=== PATIENT | female | born 1940 | race Caucasian/White ===

== ENCOUNTER 2017-11-07 09:31 | Inpatient (IN) | payer MEDICARE, MEDICAID ==
[~2017-11-07] VITALS: Ht 167.6 cm; Wt 113.5 kg
[~2017-11-07 09:31] MED LIST: AMIT25TA9 PO; ASPI-1158 PO; ATOR10TA PO; CLOP75TA16 PO; DOCU-138 PO; FURO-151 PO; LORA1TAB PO
[2017-11-07] MEDS ORDERED: HEPARIN SODIUM 1,000 UNIT/1ML VIAL IV ONE (11:37)
[2017-11-07] MEDS ORDERED: ASPIRIN/SOD BICARB/CITRIC ACID 324MG TAB EFF ONE (13:06)
[2017-11-07] MEDS ORDERED: MIDAZOLAM HCL 2 MG/2 ML VIAL ONE (13:09)
[2017-11-07] MEDS ORDERED: IODIXANOL 320MG/ML 100 ML BOTTLE IV ONE (13:10)
[2017-11-07] MEDS ORDERED: FENTANYL CITRATE/PF 50MCG/ML 2ML VIAL ONE (13:10)
[2017-11-07] MEDS ORDERED: LIDOCAINE HCL 1% 10 MG/ML 10ML VIAL ONE ×2 (13:10→13:23)
[2017-11-07] MEDS ORDERED: IOHEXOL-300 100 ML BOTTLE ONE (13:57)
[2017-11-07] MEDS ORDERED: ONDANSETRON HCL 4MG/2ML INJ IV PRN (14:45)
[2017-11-07] MEDS ORDERED: ACETAMINOPHEN 325MG TABLET PO PRN (14:45)
[2017-11-07] MEDS ORDERED: ATROPINE SULFATE 1MG/10ML SYR IV PRN (14:45)
[2017-11-07] MEDS ORDERED: CLOPIDOGREL 75MG TABLET PO ONE (14:45)
[2017-11-07] MEDS ORDERED: NITROGLYCERIN 50MCG/ML 10ML VIAL (CATH LAB) IV ONE (14:46)
[2017-11-07] MEDS ORDERED: NICARDIPINE 100MCG/ML 10ML VIAL (CATH LAB) IV ONE (14:46)
[2017-11-07 14:57] VITALS: BP 139/72
[2017-11-07] MEDS ORDERED: DEXTROSE 50% WATER 50ML SYRINGE IV PRN (15:00)
[2017-11-07] MEDS: BLOOD SUGAR DIAGNOSTIC STRIP TEST SCH ×2 (16:09→20:51)
[2017-11-07 16:12] VITALS: BP 150/69
[2017-11-07] MEDS: LOSARTAN POTASSIUM 25 MG TABLET PO SCH (16:15)
[2017-11-07] MEDS: INSULIN LISPRO 100 UNITS/ML SUBCUT SCH ×2 (17:20→20:51)
[2017-11-07 18:32] VITALS: BP 132/56
[2017-11-07 20:00] VITALS: BP 135/55
[2017-11-07] MEDS: METOPROLOL TARTRATE 50MG TABLET PO SCH (20:36)
[2017-11-07] MEDS ORDERED: ATORVASTATIN CALCIUM 40MG TABLET PO SCH (21:00)
[2017-11-07 22:00] VITALS: BP 112/42
[2017-11-08] VITALS (8 sets, daily range): BP systolic 124–166; BP diastolic 42–92
[2017-11-08] MEDS: BLOOD SUGAR DIAGNOSTIC STRIP TEST SCH (06:12)
[2017-11-08 06:58] LABS: BASOPHILS % 0.2 % (0.0-2.0); EOSINOPHILS % 2.1 % (0.0-5.0); HEMATOCRIT. 37.6 % (36.0-48.0); HEMOGLOBIN. 12.6 g/dL (12.0-16.0); LYMPHOCYTES % 55.5 % (20.0-50.0); MEAN CORPUSCULAR HEMOGLOBIN 29.2 pg (28.0-32.0); MEAN CORPUSCULAR VOLUME 87.4 fL (81.0-99.0); MEAN PLATELET VOLUME 8.4 fl (7.4-10.4); MONOCYTES % 5.9 % (2.0-8.0); NEUTROPHILS % 36.3 % (40.0-76.0); PLATELET 208 x1000/uL (130-400); RED BLOOD CELL COUNT 4.31 mill/uL (4.2-5.4); RED CELL DISTRIBUTION WIDTH 14.4 % (11.6-14.6)
[2017-11-08] MEDS: INSULIN LISPRO 100 UNITS/ML SUBCUT SCH (07:20)
[2017-11-08 07:34] LABS: CHLORIDE 102 mEq/L (98-107)
[2017-11-08] MEDS: METOPROLOL TARTRATE 50MG TABLET PO SCH (08:56)
[2017-11-08] MEDS: LOSARTAN POTASSIUM 25 MG TABLET PO SCH (08:56)
[2017-11-08] MEDS ORDERED: CLOPIDOGREL 75MG TABLET PO SCH (09:00)
== END 2017-11-08 13:28 | disposition home or self-care (01) | DRG 287 ==
LOC: CCL 09:31 → 3WST 09:32
PROVIDERS: ADMIT Specialist; ATTEND Specialist
PROC: 4A023N7 Measurement of Cardiac Sampling and Pressure, Left Heart, Percutaneous Approach (ICD-10-PCS; principal; 2017-11-07)
PROC: B2111ZZ Fluoroscopy of Multiple Coronary Arteries using Low Osmolar Contrast (ICD-10-PCS; 2017-11-07)
DX: I25.110 Atherosclerotic heart disease of native coronary artery with unstable angina pectoris (principal); I10 Essential (primary) hypertension; E78.00 Pure hypercholesterolemia, unspecified; E11.9 Type 2 diabetes mellitus without complications; M19.90 Unspecified osteoarthritis, unspecified site; G47.33 Obstructive sleep apnea (adult) (pediatric); I25.2 Old myocardial infarction; Z95.5 Presence of coronary angioplasty implant and graft; Z88.6 Allergy status to analgesic agent
CPT/HCPCS: 36415; 80048; 82962; 85025; 85347; 93005; 93458; C1769; C1887; C1893; J1644; J1815; J2250; J3010; J3490; Q9967

== ENCOUNTER 2018-06-15 17:48 | Inpatient (IN) | payer OTHER, MEDICAID ==
[~2018-06-15] VITALS: Ht 165.1 cm; Wt 81.6 kg
[2018-06-15] MEDS ORDERED: ONDANSETRON HCL 4MG/2ML INJ IV STA (18:28)
[2018-06-15] MEDS ORDERED: MORPHINE SULFATE 4 MG/ML CPJ (NOT FOR IM USE) IV STA (18:28)
[2018-06-15 18:58] LABS: BASOPHILS % 0.3 % (0.0-2.0); EOSINOPHILS % 1.2 % (0.0-5.0); HEMATOCRIT. 37.8 % (36.0-48.0); HEMOGLOBIN. 12.4 g/dL (12.0-16.0); LYMPHOCYTES % 47.6 % (20.0-50.0); MEAN CORPUSCULAR HEMOGLOBIN 28.8 pg (28.0-32.0); MEAN CORPUSCULAR VOLUME 87.9 fL (81.0-99.0); MEAN PLATELET VOLUME 8.3 fl (7.4-10.4); NEUTROPHILS % 45.9 % (40.0-76.0); PLATELET 184 x1000/uL (130-400); RED CELL DISTRIBUTION WIDTH 14.2 % (11.6-14.6)
[2018-06-15 19:14] LABS: D-DIMER 2.68 mg/L FEU (<0.50); PARTIAL THROMBOPLASTIN TIME 27.4 sec (23.4-31.0); PROTHROMBIN TIME 10.2 sec (9.6-11.0)
[2018-06-15 19:23] LABS: CHLORIDE 103 mEq/L (98-107)
[2018-06-15 19:27] LABS: ETHANOL BLOOD < 10 mg/dL
[2018-06-15] MEDS ORDERED: ENOXAPARIN 40MG/0.4ML SYR SUBCUT SCH (21:45)
[2018-06-15] MEDS ORDERED: DIPHENHYDRAMINE 50MG/ML VIAL IV PRN (21:45)
[2018-06-15] MEDS ORDERED: ONDANSETRON HCL 4MG/2ML INJ IV PRN (21:45)
[2018-06-15] MEDS ORDERED: GUAIFENESIN 200MG/10ML SUGAR FREE UDC PO PRN (21:45)
[2018-06-15] MEDS ORDERED: HYDROMORPHONE HCL/PF 2MG/ML CPJ IV PRN (21:45)
[2018-06-15] MEDS ORDERED: CLONIDINE 0.1MG TABLET PO PRN (21:45)
[2018-06-15] MEDS ORDERED: MAGNESIUM/ALUMINUM HYDROXIDE/SIMETHICONE 30ML UDC PO PRN (21:45)
[2018-06-15] MEDS ORDERED: DOCUSATE SODIUM 100MG CAPSULE PO PRN (21:45)
[2018-06-15] MEDS ORDERED: IPRATROPIUM/ALBUTEROL 0.5-3(2.5)MG/3ML NEB INH PRN (21:45)
[2018-06-15] MEDS ORDERED: ACETAMINOPHEN 325MG TABLET PO PRN (21:45)
[2018-06-15] MEDS ORDERED: LORAZEPAM 2MG/ML CPJ IV PRN (21:45)
[2018-06-15 22:38] LABS: CHLORIDE 107 mEq/L (98-107)
[2018-06-16 03:25] LABS: *AMPHETAMINES SCREEN URINE NEGATIVE (NEGATIVE)
[2018-06-16 03:27] LABS: *BARBITURATES SCREEN URINE NEGATIVE (NEGATIVE); *BENZODIAZEPINES SCREEN URINE NEGATIVE (NEGATIVE); *COCAINE SCREEN URINE NEGATIVE (NEGATIVE); CANNABINOID URINE SCREEN NEGATIVE (NEGATIVE); METHADONE URINE SCREEN NEGATIVE (NEGATIVE); OPIATES URINE SCREEN PRESUMTIVE POSITIVE (NEGATIVE); PHENCYCLIDINE URINE SCREEN NEGATIVE (NEGATIVE)
[2018-06-16] MEDS ORDERED: IOHEXOL-350 100 ML BOTTLE ONE (04:17)
[2018-06-16 06:01] LABS: BASOPHILS % 0.2 % (0.0-2.0); EOSINOPHILS % 0.7 % (0.0-5.0); HEMATOCRIT. 40.3 % (36.0-48.0); HEMOGLOBIN. 13.1 g/dL (12.0-16.0); LYMPHOCYTES % 48.9 % (20.0-50.0); MEAN CORPUSCULAR HEMOGLOBIN 28.8 pg (28.0-32.0); MEAN CORPUSCULAR VOLUME 88.4 fL (81.0-99.0); MEAN PLATELET VOLUME 8.6 fl (7.4-10.4); MONOCYTES % 5.3 % (2.0-8.0); NEUTROPHILS % 44.9 % (40.0-76.0); PLATELET 193 x1000/uL (130-400); RED BLOOD CELL COUNT 4.56 mill/uL (4.2-5.4); RED CELL DISTRIBUTION WIDTH 13.9 % (11.6-14.6)
[2018-06-16 06:12] LABS: CHLORIDE 104 mEq/L (98-107)
[2018-06-16 06:20] LABS: HDL CHOLESTEROL 77 mg/dL (40-59); LDL CHOLESTEROL 96 mg/dL (5-100)
[2018-06-16 08:00] VITALS: BP 135/52
[2018-06-16] MEDS ORDERED: NA PHOS,M-B/NA PHOS,DI-BA ENEMA 118ML PR PRN (09:00)
[2018-06-16 10:00] VITALS: BP 135/52
[2018-06-16 12:00] VITALS: BP 140/60
[2018-06-16] MEDS: CLOPIDOGREL 75MG TABLET PO SCH (12:10)
[2018-06-16] MEDS: ASPIRIN 81MG EC TABLET PO SCH (12:10)
[2018-06-16] MEDS: ISOSORBIDE MONONITRATE 60MG TABLET SR 24HR PO SCH (12:10)
[2018-06-16] MEDS: ENOXAPARIN 30MG/0.3ML SYR SUBCUT SCH ×2 (12:11→21:53)
[2018-06-16] MEDS: BLOOD SUGAR DIAGNOSTIC STRIP TEST SCH ×3 (12:40→21:57)
[2018-06-16] MEDS ORDERED: DEXTROSE 50% WATER 50ML SYRINGE IV PRN (12:45)
[2018-06-16] MEDS: INSULIN LISPRO 100 UNITS/ML SUBCUT SCH ×3 (13:10→21:00)
[2018-06-16] MEDS: HYDROCODONE/ACETAMINOPHEN 5/325MG TABLET PO PRN ×2 (15:55→21:52)
[2018-06-16 16:00] VITALS: BP 129/59
[2018-06-16] MEDS: FUROSEMIDE 40MG/4ML VIAL IVP SCH (19:30)
[2018-06-16 20:00] VITALS: BP 116/56
[2018-06-16] MEDS ORDERED: ATORVASTATIN CALCIUM 40MG TABLET PO SCH (21:00)
[2018-06-16] MEDS: AMLODIPINE 5MG TABLET PO SCH (21:50)
[2018-06-17 00:17] VITALS: BP 119/62
[2018-06-17 04:00] VITALS: BP 144/63
[2018-06-17] MEDS: HYDROCODONE/ACETAMINOPHEN 5/325MG TABLET PO PRN ×2 (04:11→13:03)
[2018-06-17] MEDS: BLOOD SUGAR DIAGNOSTIC STRIP TEST SCH ×2 (06:42→12:40)
[2018-06-17 08:00] VITALS: BP 140/69
[2018-06-17] MEDS: INSULIN LISPRO 100 UNITS/ML SUBCUT SCH ×2 (08:10→13:10)
[2018-06-17] MEDS: AMLODIPINE 5MG TABLET PO SCH (08:52)
[2018-06-17] MEDS: CLOPIDOGREL 75MG TABLET PO SCH (08:52)
[2018-06-17] MEDS: ISOSORBIDE MONONITRATE 60MG TABLET SR 24HR PO SCH (08:52)
[2018-06-17] MEDS: ASPIRIN 81MG EC TABLET PO SCH (08:52)
[2018-06-17] MEDS: FUROSEMIDE 40MG/4ML VIAL IVP SCH (09:00)
[2018-06-17] MEDS: ENOXAPARIN 30MG/0.3ML SYR SUBCUT SCH (10:27)
[2018-06-17 12:00] VITALS: BP 120/59
[2018-06-17 16:00] VITALS: BP 117/56
== END 2018-06-17 18:16 | disposition home or self-care (01) | DRG 311 ==
LOC: ER 17:48 → 7WST 20:11 → EDBEDREQ 20:19 → EDBEDREQTM 20:19 → ENRESERV 06-16 03:06
PROVIDERS: ADMIT Internal Medicine; ATTEND Internal Medicine
DX: I24.9 Acute ischemic heart disease, unspecified (principal); E11.9 Type 2 diabetes mellitus without complications; E66.9 Obesity, unspecified; E78.5 Hyperlipidemia, unspecified; M25.511 Pain in right shoulder; I50.9 Heart failure, unspecified; I11.0 Hypertensive heart disease with heart failure; I25.10 Atherosclerotic heart disease of native coronary artery without angina pectoris; I25.2 Old myocardial infarction; Z79.02 Long term (current) use of antithrombotics/antiplatelets; Z79.82 Long term (current) use of aspirin; Z79.899 Other long term (current) drug therapy; Z95.5 Presence of coronary angioplasty implant and graft; Z68.30 Body mass index [BMI] 30.0-30.9, adult
CPT/HCPCS: 36415; 71045; 71275; 73030; 80048; 80061; 80305; 80320; 82962; 83880; 84484; 85379; 93005; 93306; 96374; 96375; 99285; J1650; J1940; J2270; J2405; Q9967; G0480

== ENCOUNTER 2018-09-21 09:57 | Inpatient (IN) | payer MEDICARE, MEDICAID ==
[~2018-09-21] VITALS: Ht 165.1 cm; Wt 107.0 kg
[~2018-09-21 09:57] MED LIST changes: -CLOP75TA16 PO; +CLOP75TA4 PO
[2018-09-21] MEDS ORDERED: SODIUM CHLORIDE 0.9% 1,000 ML IV ONE (10:24)
[2018-09-21] MEDS ORDERED: FENTANYL CITRATE/PF 50MCG/ML 2ML VIAL IV ONE (10:30)
[2018-09-21] MEDS ORDERED: ONDANSETRON HCL 4MG/2ML INJ IV ONE (10:30)
[2018-09-21 11:01] LABS: HEMATOCRIT. 40.1 % (36.0-48.0); MEAN CORPUSCULAR HEMOGLOBIN 28.8 pg (28.0-32.0); MEAN CORPUSCULAR VOLUME 88.7 fL (81.0-99.0); MEAN PLATELET VOLUME 8.4 fl (7.4-10.4); PLATELET 238 x1000/uL (130-400); RED BLOOD CELL COUNT 4.52 mill/uL (4.2-5.4); RED CELL DISTRIBUTION WIDTH 15.1 % (11.6-14.6)
[2018-09-21 11:08] LABS: CHLORIDE 103 mEq/L (98-107)
[2018-09-21 11:09] LABS: PROTHROMBIN TIME 10.1 sec (9.6-11.0)
[2018-09-21 11:32] LABS: PLATELET ESTIMATE NORMAL
[2018-09-21] MEDS ORDERED: IOHEXOL-300 100 ML BOTTLE ONE (12:44)
[2018-09-21 13:28] LABS: CLARITY URINE CLEAR (CLEAR); COLOR URINE YELLOW (YELLOW); KETONES URINE NEGATIVE (NEGATIVE); LEUKOCYTE ESTERASE URINE NEGATIVE (NEGATIVE); NITRITE URINE NEGATIVE (NEGATIVE); OCCULT BLOOD URINE NEGATIVE (NEGATIVE); PROTEIN URINE NEGATIVE (NEGATIVE); SPECIFIC GRAVITY URINE 1.031 (1.005-1.030)
[2018-09-21] MEDS ORDERED: LORAZEPAM 2MG/ML CPJ IV PRN (13:30)
[2018-09-21] MEDS ORDERED: GUAIFENESIN 200MG/10ML SUGAR FREE UDC PO PRN (13:30)
[2018-09-21] MEDS ORDERED: ONDANSETRON HCL 4MG/2ML INJ IV PRN (13:30)
[2018-09-21] MEDS ORDERED: NA PHOS,M-B/NA PHOS,DI-BA ENEMA 118ML PR PRN (13:30)
[2018-09-21] MEDS ORDERED: MAGNESIUM/ALUMINUM HYDROXIDE/SIMETHICONE 30ML UDC PO PRN (13:30)
[2018-09-21] MEDS ORDERED: IPRATROPIUM/ALBUTEROL 0.5-3(2.5)MG/3ML NEB INH PRN (13:30)
[2018-09-21] MEDS ORDERED: CLONIDINE 0.1MG TABLET PO PRN (13:30)
[2018-09-21] MEDS ORDERED: DIPHENHYDRAMINE 50MG/ML VIAL IV PRN (13:30)
[2018-09-21] MEDS ORDERED: HYDRALAZINE 20MG/ML VIAL IV PRN (13:30)
[2018-09-21] MEDS ORDERED: DEXTROSE 50% WATER 50ML SYRINGE IV PRN (14:15)
[2018-09-21 16:00] VITALS: BP 163/69
[2018-09-21] MEDS: BLOOD SUGAR DIAGNOSTIC STRIP TEST SCH ×2 (17:10→21:26)
[2018-09-21 17:50] LABS: CREATINE KINASE 69 IU/L (26-192)
[2018-09-21 17:52] LABS: CREATINE KINASE MB FRACTION < 1.0 ng/mL (0.5-3.6)
[2018-09-21] MEDS: INSULIN LISPRO 100 UNITS/ML SUBCUT SCH ×2 (18:52→21:26)
[2018-09-21 19:50] VITALS: BP 153/65
[2018-09-21 20:00] VITALS: BP 156/75
[2018-09-21] MEDS: ENOXAPARIN 30MG/0.3ML SYR SUBCUT SCH (21:25)
[2018-09-21] MEDS: SODIUM CHLORIDE 0.9% INJ 3ML FLUSH IVF SCH (21:27)
[2018-09-22] VITALS: BP 120/66
[2018-09-22] MEDS: HYDROCODONE/ACETAMINOPHEN 10/325MG TABLET PO PRN ×3 (00:36→14:49)
[2018-09-22 00:59] LABS: CREATINE KINASE 65 IU/L (26-192)
[2018-09-22 01:00] LABS: CREATINE KINASE MB FRACTION < 1.0 ng/mL (0.5-3.6)
[2018-09-22 04:00] VITALS: BP 143/59
[2018-09-22] MEDS: SODIUM CHLORIDE 0.9% INJ 3ML FLUSH IVF SCH ×3 (06:10→20:24)
[2018-09-22] MEDS: BLOOD SUGAR DIAGNOSTIC STRIP TEST SCH ×4 (06:24→20:25)
[2018-09-22] MEDS: INSULIN LISPRO 100 UNITS/ML SUBCUT SCH ×4 (06:24→20:25)
[2018-09-22 08:00] VITALS: BP 128/60
[2018-09-22 08:49] LABS: HEMATOCRIT. 37.3 % (36.0-48.0); HEMOGLOBIN. 12.3 g/dL (12.0-16.0); MEAN CORPUSCULAR HEMOGLOBIN 29.1 pg (28.0-32.0); MEAN CORPUSCULAR VOLUME 88.2 fL (81.0-99.0); MEAN PLATELET VOLUME 8.6 fl (7.4-10.4); PLATELET 221 x1000/uL (130-400); RED BLOOD CELL COUNT 4.23 mill/uL (4.2-5.4); RED CELL DISTRIBUTION WIDTH 15.1 % (11.6-14.6)
[2018-09-22 09:14] LABS: CHLORIDE 103 mEq/L (98-107)
[2018-09-22 09:28] LABS: T4 FREE 1.23 ng/dL (0.76-1.46)
[2018-09-22] MEDS: ENOXAPARIN 30MG/0.3ML SYR SUBCUT SCH ×2 (09:37→20:24)
[2018-09-22 12:00] VITALS: BP 149/66
[2018-09-22 13:16] LABS: PLATELET ESTIMATE NORMAL
[2018-09-22 16:00] VITALS: BP 147/56
[2018-09-22 20:00] VITALS: BP 141/55
[2018-09-22] MEDS: ACETAMINOPHEN 325MG TABLET PO PRN (20:24)
[2018-09-23] VITALS: BP 158/65
[2018-09-23] MEDS: HYDROCODONE/ACETAMINOPHEN 10/325MG TABLET PO PRN ×2 (02:46→15:28)
[2018-09-23 04:00] VITALS: BP 133/54
[2018-09-23] MEDS: DOCUSATE SODIUM 100MG CAPSULE PO PRN (06:09)
[2018-09-23] MEDS: SODIUM CHLORIDE 0.9% INJ 3ML FLUSH IVF SCH ×3 (06:10→22:35)
[2018-09-23] MEDS: BLOOD SUGAR DIAGNOSTIC STRIP TEST SCH ×4 (07:10→21:30)
[2018-09-23] MEDS: INSULIN LISPRO 100 UNITS/ML SUBCUT SCH ×4 (07:34→21:00)
[2018-09-23 08:00] VITALS: BP 169/70
[2018-09-23] MEDS: ENOXAPARIN 30MG/0.3ML SYR SUBCUT SCH ×2 (09:45→22:35)
[2018-09-23 12:00] VITALS: BP 126/53
[2018-09-23 16:00] VITALS: BP 144/50
[2018-09-23] MEDS: HYDROMORPHONE HCL/PF 2MG/ML CPJ IV PRN (19:06)
[2018-09-23 20:00] VITALS: BP 151/59
[2018-09-24] VITALS: BP 149/80
[2018-09-24 04:00] VITALS: BP 150/60
[2018-09-24] MEDS: BLOOD SUGAR DIAGNOSTIC STRIP TEST SCH ×4 (05:18→21:15)
[2018-09-24] MEDS: SODIUM CHLORIDE 0.9% INJ 3ML FLUSH IVF SCH ×3 (05:18→21:33)
[2018-09-24] MEDS: HYDROMORPHONE HCL/PF 2MG/ML CPJ IV PRN ×2 (05:18→10:13)
[2018-09-24] MEDS: INSULIN LISPRO 100 UNITS/ML SUBCUT SCH ×4 (05:23→21:00)
[2018-09-24 08:00] VITALS: BP 138/62
[2018-09-24] MEDS: ENOXAPARIN 30MG/0.3ML SYR SUBCUT SCH ×2 (09:30→21:34)
[2018-09-24 12:00] VITALS: BP 159/68
[2018-09-24 16:00] VITALS: BP 142/72
[2018-09-24] MEDS: DOCUSATE SODIUM 100MG CAPSULE PO PRN (17:35)
[2018-09-24 20:00] VITALS: BP 161/67
[2018-09-25] VITALS: BP 169/67
[2018-09-25] MEDS: ACETAMINOPHEN 325MG TABLET PO PRN (00:54)
[2018-09-25 01:54] VITALS: BP 129/50
[2018-09-25 04:00] VITALS: BP 157/83
[2018-09-25] MEDS: BLOOD SUGAR DIAGNOSTIC STRIP TEST SCH ×2 (06:16→12:10)
[2018-09-25] MEDS: SODIUM CHLORIDE 0.9% INJ 3ML FLUSH IVF SCH ×2 (06:17→14:05)
[2018-09-25] MEDS: INSULIN LISPRO 100 UNITS/ML SUBCUT SCH ×2 (06:51→12:24)
[2018-09-25] MEDS: ENOXAPARIN 30MG/0.3ML SYR SUBCUT SCH (09:32)
[2018-09-25] MEDS: HYDROCODONE/ACETAMINOPHEN 10/325MG TABLET PO PRN (11:05)
[2018-09-25 12:00] VITALS: BP 152/74
[2018-09-25 14:00] VITALS: BP 152/74
== END 2018-09-25 16:02 | disposition home health service (06) | DRG 964 ==
LOC: ER 09:57 → 8WST 13:03 → ENRESERV 13:59
PROVIDERS: ADMIT Internal Medicine; ATTEND Internal Medicine
PROC: 2W3GX1Z Immobilization of Right Thumb using Splint (ICD-10-PCS; principal; 2018-09-21)
PROC: 2W3 Placement, Anatomical Regions, Immobilization (ICD-10-PCS; 2018-09-24)
DX: S22.41XA Multiple fractures of ribs, right side, initial encounter for closed fracture (principal); S27.1XXA Traumatic hemothorax, initial encounter; S32.10XA Unspecified fracture of sacrum, initial encounter for closed fracture; S32.029A Unspecified fracture of second lumbar vertebra, initial encounter for closed fracture; R65.10 Systemic inflammatory response syndrome (SIRS) of non-infectious origin without acute organ dysfunction; J90 Pleural effusion, not elsewhere classified; I11.9 Hypertensive heart disease without heart failure; E11.9 Type 2 diabetes mellitus without complications; I25.10 Atherosclerotic heart disease of native coronary artery without angina pectoris; Z95.5 Presence of coronary angioplasty implant and graft; D35.02 Benign neoplasm of left adrenal gland; M47.816 Spondylosis without myelopathy or radiculopathy, lumbar region; M43.10 Spondylolisthesis, site unspecified; M48.061 Spinal stenosis, lumbar region without neurogenic claudication; W10.9XXA Fall (on) (from) unspecified stairs and steps, initial encounter; E66.01 Morbid (severe) obesity due to excess calories; K57.30 Diverticulosis of large intestine without perforation or abscess without bleeding; Z88.5 Allergy status to narcotic agent; W10.8XXA Fall (on) (from) other stairs and steps, initial encounter; Y93.89 Activity, other specified; Y92.89 Other specified places as the place of occurrence of the external cause; Y99.8 Other external cause status; S62.009A Unspecified fracture of navicular [scaphoid] bone of unspecified wrist, initial encounter for closed fracture; Z79.02 Long term (current) use of antithrombotics/antiplatelets; Z79.899 Other long term (current) drug therapy
CPT/HCPCS: 36415; 71045; 71260; 72148; 73030; 73110; 74177; 82550; 82553; 82962; 84439; 84443; 84484; 86850; 86900; 93005; 96374; 96375; 97162; 97530; 97760; 99291; J1170; J1650; J1815; J2405; J3010; J7030; Q9967

== ENCOUNTER 2019-04-10 02:23 | Inpatient (IN) | payer MEDICARE, MEDICAID ==
[~2019-04-10] VITALS: Ht 167.6 cm; Wt 98.9 kg
[2019-04-10 05:35] LABS: BASOPHILS % 0.2 % (0.0-2.0); EOSINOPHILS % 2.8 % (0.0-5.0); HEMATOCRIT. 32.6 % (36.0-48.0); HEMOGLOBIN. 11.1 g/dL (12.0-16.0); LYMPHOCYTES % 36.4 % (20.0-50.0); MEAN CORPUSCULAR HEMOGLOBIN 29.8 pg (28.0-32.0); MEAN CORPUSCULAR VOLUME 87.1 fL (81.0-99.0); MEAN PLATELET VOLUME 7.5 fl (7.4-10.4); MONOCYTES % 5.5 % (2.0-8.0); NEUTROPHILS % 55.1 % (40.0-76.0); PLATELET 264 x1000/uL (130-400); RED BLOOD CELL COUNT 3.75 mill/uL (4.2-5.4); RED CELL DISTRIBUTION WIDTH 14.8 % (11.6-14.6)
[2019-04-10 05:45] LABS: CHLORIDE 104 mEq/L (98-107)
[2019-04-10] MEDS ORDERED: HYDROCODONE/ACETAMINOPHEN 5/325MG TABLET PO ONE (06:15)
[2019-04-10 06:25] LABS: CLARITY URINE CLEAR (CLEAR); COLOR URINE YELLOW (YELLOW); KETONES URINE NEGATIVE (NEGATIVE); LEUKOCYTE ESTERASE URINE NEGATIVE (NEGATIVE); NITRITE URINE NEGATIVE (NEGATIVE); OCCULT BLOOD URINE NEGATIVE (NEGATIVE); PH URINE 5.5 (4.5-8.0); PROTEIN URINE NEGATIVE (NEGATIVE); SPECIFIC GRAVITY URINE 1.005 (1.005-1.030); UROBILINOGEN URINE 0.2 E.U./dL (0.2-1.0)
[2019-04-10] MEDS ORDERED: LORAZEPAM 2MG/ML CPJ IV ONE (07:45)
[2019-04-10] MEDS ORDERED: FUROSEMIDE 20MG/2ML VIAL IVP ONE (08:00)
[2019-04-10] MEDS ORDERED: VANCOMYCIN 1 G PREMIX 200 ML IV SCH (08:00)
[2019-04-10] MEDS ORDERED: CEFTRIAXONE 2 G PREMIX 50 ML IV ONE (08:45)
[2019-04-10] MEDS ORDERED: DIPHENHYDRAMINE 50MG/ML VIAL IV PRN (09:15)
[2019-04-10] MEDS ORDERED: GUAIFENESIN 200MG/10ML SUGAR FREE UDC PO PRN (09:15)
[2019-04-10] MEDS ORDERED: ONDANSETRON HCL 4MG/2ML INJ IV PRN (09:15)
[2019-04-10] MEDS ORDERED: LORAZEPAM 2MG/ML CPJ IV PRN (09:15)
[2019-04-10] MEDS ORDERED: PIPERACILLIN/TAZ 3.375G PREMIX 50 ML IV SCH (09:15)
[2019-04-10] MEDS ORDERED: MAGNESIUM/ALUMINUM HYDROXIDE/SIMETHICONE 30ML UDC PO PRN (09:15)
[2019-04-10] MEDS ORDERED: CLONIDINE 0.1MG TABLET PO PRN (09:15)
[2019-04-10] MEDS ORDERED: DOCUSATE SODIUM 100MG CAPSULE PO PRN (09:15)
[2019-04-10] MEDS ORDERED: CLOPIDOGREL 75MG TABLET PO SCH (09:15)
[2019-04-10 11:14] LABS: INR 1.5; PARTIAL THROMBOPLASTIN TIME 29.2 sec (23.4-31.0); PROTHROMBIN TIME 16.4 sec (9.6-11.0)
[2019-04-10] MEDS: HYDROCODONE/ACETAMINOPHEN 10/325MG TABLET PO PRN (17:10)
[2019-04-10 18:25] LABS: CREATINE KINASE 66 IU/L (26-192)
[2019-04-10 18:26] LABS: CREATINE KINASE MB FRACTION 1.2 ng/mL (0.5-3.6)
[2019-04-10] MEDS ORDERED: PIPERACILLIN/TAZOBACTAM 2.25 G in DEXTROSE 5% WATER 50 ML IV SCH (22:00)
[2019-04-10 22:30] VITALS: BP 175/79
[2019-04-10 23:17] VITALS: BP 175/79
[2019-04-11] VITALS: BP 156/76
[2019-04-11] MEDS: SODIUM CHLORIDE 0.45% 1,000 ML IV SCH ×2 (00:37→15:37)
[2019-04-11 01:20] LABS: CREATINE KINASE 65 IU/L (26-192)
[2019-04-11 01:21] LABS: CREATINE KINASE MB FRACTION 1.6 ng/mL (0.5-3.6)
[2019-04-11 04:00] VITALS: BP 167/81
[2019-04-11] MEDS: HYDRALAZINE 20MG/ML VIAL IV PRN (05:24)
[2019-04-11] MEDS: HYDROCODONE/ACETAMINOPHEN 10/325MG TABLET PO PRN ×3 (05:24→20:32)
[2019-04-11] MEDS: SODIUM CHLORIDE 0.9% INJ 3ML FLUSH IVF SCH ×3 (05:27→22:00)
[2019-04-11] MEDS ORDERED: VANCOMYCIN 1 G PREMIX 200 ML IV NR (06:00)
[2019-04-11 08:00] VITALS: BP 146/61
[2019-04-11] MEDS ORDERED: CEFTRIAXONE 2 G in DEXTROSE 5% WATER 50 ML IV SCH (09:00)
[2019-04-11] MEDS ORDERED: ASPIRIN 81MG EC TABLET PO SCH (09:00)
[2019-04-11] MEDS ORDERED: METOPROLOL TARTRATE 25MG TABLET PO SCH (09:00)
[2019-04-11] MEDS: AMLODIPINE 5MG TABLET PO SCH ×2 (10:10→20:28)
[2019-04-11] MEDS: METOPROLOL TARTRATE 25MG TABLET PO SCH ×2 (10:11→20:29)
[2019-04-11 12:00] VITALS: BP 157/65
[2019-04-11 12:11] LABS: CHLORIDE 110 mEq/L (98-107)
[2019-04-11 13:19] LABS: BASOPHILS % 0.5 % (0.0-2.0); EOSINOPHILS % 2.4 % (0.0-5.0); HEMATOCRIT. 30.4 % (36.0-48.0); LYMPHOCYTES % 41.9 % (20.0-50.0); MEAN CORPUSCULAR HEMOGLOBIN 28.7 pg (28.0-32.0); MEAN CORPUSCULAR VOLUME 87.1 fL (81.0-99.0); MEAN PLATELET VOLUME 7.8 fl (7.4-10.4); MONOCYTES % 5.9 % (2.0-8.0); NEUTROPHILS % 49.3 % (40.0-76.0); PLATELET 301 x1000/uL (130-400); RED BLOOD CELL COUNT 3.49 mill/uL (4.2-5.4)
[2019-04-11 13:27] LABS: INR 1.1; PROTHROMBIN TIME 11.8 sec (9.6-11.0)
[2019-04-11] MEDS ORDERED: MAGNESIUM 1 G PREMIX 100 ML IV NR (14:30)
[2019-04-11 16:00] VITALS: BP 164/71
[2019-04-11 16:39] LABS: CHLORIDE 110 mEq/L (98-107)
[2019-04-11] MEDS ORDERED: POTASSIUM CHLORIDE 20MEQ TABLET SR PO NR (16:45)
[2019-04-11] MEDS: IPRATROPIUM/ALBUTEROL 0.5-3(2.5)MG/3ML NEB HHN PRN ×2 (17:37→22:33)
[2019-04-11 20:00] VITALS: BP 164/61
[2019-04-12] VITALS (66 sets, daily range): BP systolic 123–220; BP diastolic 51–99
[2019-04-12] MEDS: DEXT 5%/LACTATED RINGERS 1,000 ML IV SCH ×2 (03:09→18:37)
[2019-04-12] MEDS: HYDRALAZINE 20MG/ML VIAL IV PRN ×2 (04:46→20:23)
[2019-04-12] MEDS ORDERED: SODIUM CHLORIDE 0.45% 250 ML IV ONE (07:00)
[2019-04-12] MEDS: METOPROLOL TARTRATE 25MG TABLET PO SCH ×2 (08:27→20:23)
[2019-04-12] MEDS: AMLODIPINE 5MG TABLET PO SCH ×2 (08:28→20:23)
[2019-04-12] MEDS ORDERED: LIDOCAINE HCL 1% 20ML VIAL (Pyxis) INJ ONE ×2 (08:44→12:46)
[2019-04-12 11:06] LABS: BASOPHILS % 0.2 % (0.0-2.0); EOSINOPHILS % 1.8 % (0.0-5.0); HEMATOCRIT. 30.8 % (36.0-48.0); HEMOGLOBIN. 10.2 g/dL (12.0-16.0); LYMPHOCYTES % 44.8 % (20.0-50.0); MEAN CORPUSCULAR HEMOGLOBIN 29.2 pg (28.0-32.0); MEAN CORPUSCULAR VOLUME 87.7 fL (81.0-99.0); MEAN PLATELET VOLUME 7.6 fl (7.4-10.4); MONOCYTES % 4.8 % (2.0-8.0); NEUTROPHILS % 48.4 % (40.0-76.0); PLATELET 349 x1000/uL (130-400); RED BLOOD CELL COUNT 3.51 mill/uL (4.2-5.4); RED CELL DISTRIBUTION WIDTH 14.8 % (11.6-14.6)
[2019-04-12 11:18] LABS: CHLORIDE 106 mEq/L (98-107)
[2019-04-12] MEDS ORDERED: MIDAZOLAM HCL 2 MG/2 ML VIAL ONE (12:46)
[2019-04-12] MEDS ORDERED: IODIXANOL 320MG/ML 100 ML BOTTLE IV ONE (12:46)
[2019-04-12] MEDS ORDERED: FENTANYL CITRATE/PF 50MCG/ML 2ML VIAL ONE (12:46)
[2019-04-12 13:07] LABS: ANTI-NUCLEAR ANTIBODIES DIRECT Negative (Negative)
[2019-04-12] MEDS ORDERED: HEPARIN SODIUM 1,000 UNIT/1ML VIAL IV ONE (13:10)
[2019-04-12] MEDS ORDERED: NICARDIPINE 100MCG/ML 10ML VIAL (CATH LAB) IV ONE (13:10)
[2019-04-12] MEDS ORDERED: NITROGLYCERIN 50MCG/ML 10ML VIAL (CATH LAB) IV ONE (13:10)
[2019-04-12] MEDS ORDERED: ACETAMINOPHEN 325MG TABLET PO PRN (13:30)
[2019-04-12] MEDS ORDERED: ATROPINE SULFATE 1MG/10ML SYR IV PRN (13:30)
[2019-04-12] MEDS ORDERED: ONDANSETRON HCL 4MG/2ML INJ IV PRN (13:30)
[2019-04-12] MEDS ORDERED: SODIUM CHLORIDE 0.45% 1,000 ML IV ONE (13:30)
[2019-04-12] MEDS ORDERED: SODIUM BICARBONATE 8.4% 1 MEQ/ML 50ML SYR IV NR (14:15)
[2019-04-12] MEDS: ACETAMINOPHEN 325MG TABLET PO PRN (14:43)
[2019-04-12] MEDS ORDERED: VANCOMYCIN 1250MG in DEXTROSE 5% WATER 250ML IV SCH (17:30)
[2019-04-13] VITALS (71 sets, daily range): BP systolic 99–165; BP diastolic 45–78
[2019-04-13] MEDS: HYDROCODONE/ACETAMINOPHEN 10/325MG TABLET PO PRN (03:27)
[2019-04-13] MEDS: CEFTRIAXONE 2 G in DEXTROSE 5% WATER 50 ML IV SCH (03:27)
[2019-04-13 05:52] LABS: BASOPHILS % 0.3 % (0.0-2.0); EOSINOPHILS % 2.9 % (0.0-5.0); HEMATOCRIT. 30.2 % (36.0-48.0); HEMOGLOBIN. 9.9 g/dL (12.0-16.0); LYMPHOCYTES % 50.3 % (20.0-50.0); MEAN CORPUSCULAR HEMOGLOBIN 28.9 pg (28.0-32.0); MEAN CORPUSCULAR VOLUME 87.8 fL (81.0-99.0); MEAN PLATELET VOLUME 7.8 fl (7.4-10.4); MONOCYTES % 4.8 % (2.0-8.0); NEUTROPHILS % 41.7 % (40.0-76.0); PLATELET 331 x1000/uL (130-400); RED BLOOD CELL COUNT 3.44 mill/uL (4.2-5.4); RED CELL DISTRIBUTION WIDTH 14.8 % (11.6-14.6)
[2019-04-13 06:10] LABS: CHLORIDE 106 mEq/L (98-107)
[2019-04-13] MEDS ORDERED: THROMBIN (BOVINE) 5000 UNITS/VIAL TOP ONE (06:59)
[2019-04-13] MEDS ORDERED: NORMAL SALINE 0.9% 10 ML SYR ONE (06:59)
[2019-04-13] MEDS ORDERED: LIDOCAINE HCL/EPINEPHRINE 1%-EPI 1:100,000 20 ML VIAL ONE (06:59)
[2019-04-13] MEDS ORDERED: BACITRACIN 50,000 UNITS/VIAL ONE (07:00)
[2019-04-13] MEDS ORDERED: FENTANYL CITRATE/PF 50MCG/ML 2ML VIAL ONE ×2 (07:52→09:13)
[2019-04-13] MEDS ORDERED: ROCURONIUM BROMIDE 10MG/ML VIAL 5ML IV ONE (07:52)
[2019-04-13] MEDS ORDERED: MIDAZOLAM HCL 2 MG/2 ML VIAL ONE (07:53)
[2019-04-13] MEDS ORDERED: GLYCOPYRROLATE 0.2 MG/ML 2ML VIAL ONE ×2 (07:53→11:11)
[2019-04-13] MEDS ORDERED: PROPOFOL 200MG/20ML VIAL IV ONE (07:53)
[2019-04-13] MEDS ORDERED: NEOSTIGMINE METHYLSULFATE 1MG/ML 10 ML VIAL ONE (07:53)
[2019-04-13] MEDS ORDERED: DEXAMETHASONE 4MG/ML 1ML VIAL ONE (08:52)
[2019-04-13] MEDS ORDERED: ONDANSETRON HCL 4MG/2ML INJ ONE (08:52)
[2019-04-13] MEDS: METOPROLOL TARTRATE 25MG TABLET PO SCH ×2 (09:00→21:00)
[2019-04-13] MEDS: AMLODIPINE 5MG TABLET PO SCH ×2 (09:00→21:00)
[2019-04-13] MEDS ORDERED: NALOXONE INJ IV PRN (12:15)
[2019-04-13] MEDS ORDERED: DIPHENHYDRAMINE INJ IV PRN (12:15)
[2019-04-13] MEDS: DEXT 5%/LACTATED RINGERS 1,000 ML IV SCH (12:46)
[2019-04-13] MEDS: NICARDIPINE 100 MG in SODIUM CHLORIDE 0.9% 60 ML IV PRN (12:47)
[2019-04-13] MEDS: HYDROMORPHONE PCA 10MG/50ML IV PRN (12:49)
[2019-04-13] MEDS ORDERED: VANCOMYCIN 2,000 MG in DEXT 5% WATER 500 ML IV SCH (14:00)
[2019-04-13] MEDS ORDERED: POTASSIUM CHLORIDE INJ 40 MEQ in DEXT 5% WATER 250 ML IV SCH (14:00)
[2019-04-13] MEDS ORDERED: CLONIDINE 0.1MG TABLET PO PRN (14:15)
[2019-04-14] VITALS (82 sets, daily range): BP systolic 99–156; BP diastolic 45–77
[2019-04-14] MEDS: CEFTRIAXONE 2 G in DEXTROSE 5% WATER 50 ML IV SCH (05:04)
[2019-04-14 05:48] LABS: CHLORIDE 106 mEq/L (98-107)
[2019-04-14 05:59] LABS: BASOPHILS % 0.4 % (0.0-2.0); EOSINOPHILS % 0.8 % (0.0-5.0); HEMATOCRIT. 23.8 % (36.0-48.0); HEMOGLOBIN. 7.7 g/dL (12.0-16.0); LYMPHOCYTES % 38.5 % (20.0-50.0); MEAN CORPUSCULAR HEMOGLOBIN 28.6 pg (28.0-32.0); MEAN CORPUSCULAR VOLUME 88.1 fL (81.0-99.0); MEAN PLATELET VOLUME 7.9 fl (7.4-10.4); MONOCYTES % 5.5 % (2.0-8.0); NEUTROPHILS % 54.8 % (40.0-76.0); PLATELET 302 x1000/uL (130-400); RED BLOOD CELL COUNT 2.71 mill/uL (4.2-5.4)
[2019-04-14] MEDS: DEXT 5%/LACTATED RINGERS 1,000 ML IV SCH (08:30)
[2019-04-14] MEDS: VANCOMYCIN 1500MG in DEXTROSE 5% WATER 250ML IV SCH (08:30)
[2019-04-14] MEDS: AMLODIPINE 5MG TABLET PO SCH ×2 (08:33→20:49)
[2019-04-14] MEDS: METOPROLOL TARTRATE 25MG TABLET PO SCH ×2 (08:33→20:49)
[2019-04-14 18:49] LABS: HEMATOCRIT 22.9 % (36.0-48.0); HEMOGLOBIN 7.5 g/dL (12.0-16.0)
[2019-04-15] VITALS (77 sets, daily range): BP systolic 107–171; BP diastolic 47–100
[2019-04-15] MEDS: HYDROMORPHONE PCA 10MG/50ML IV PRN (00:29)
[2019-04-15] MEDS: CEFTRIAXONE 2 G in DEXTROSE 5% WATER 50 ML IV SCH (04:52)
[2019-04-15] MEDS: DEXT 5%/LACTATED RINGERS 1,000 ML IV SCH ×2 (04:52→12:20)
[2019-04-15 05:28] LABS: BASOPHILS % 0.3 % (0.0-2.0); EOSINOPHILS % 1.7 % (0.0-5.0); HEMATOCRIT. 21.6 % (36.0-48.0); HEMOGLOBIN. 7.1 g/dL (12.0-16.0); LYMPHOCYTES % 28.3 % (20.0-50.0); MEAN CORPUSCULAR HEMOGLOBIN 29.2 pg (28.0-32.0); MEAN CORPUSCULAR VOLUME 89.2 fL (81.0-99.0); MEAN PLATELET VOLUME 7.9 fl (7.4-10.4); MONOCYTES % 7.8 % (2.0-8.0); NEUTROPHILS % 61.9 % (40.0-76.0); PLATELET 248 x1000/uL (130-400); RED BLOOD CELL COUNT 2.42 mill/uL (4.2-5.4); RED CELL DISTRIBUTION WIDTH 14.9 % (11.6-14.6)
[2019-04-15 05:50] LABS: CHLORIDE 107 mEq/L (98-107)
[2019-04-15] MEDS: METOPROLOL TARTRATE 25MG TABLET PO SCH (08:05)
[2019-04-15] MEDS: AMLODIPINE 5MG TABLET PO SCH ×2 (08:06→20:38)
[2019-04-15] MEDS: VANCOMYCIN 1500MG in DEXTROSE 5% WATER 250ML IV SCH (08:26)
[2019-04-15] MEDS ORDERED: MORPHINE SULFATE 2 MG/ML CPJ (NOT FOR IM USE) IV NR (09:45)
[2019-04-15] MEDS ORDERED: ASPIRIN 81MG TABLET PO NR (10:15)
[2019-04-15] MEDS: HYDRALAZINE 20MG/ML VIAL IV PRN ×2 (10:53→15:46)
[2019-04-15] MEDS ORDERED: VANCOMYCIN 250 MG in SODIUM CHLORIDE 0.9% 100 ML IV SCH (11:00)
[2019-04-15] MEDS ORDERED: VANCOMYCIN 500 MG PREMIX 100 ML IV SCH (11:00)
[2019-04-15 20:24] LABS: HEMATOCRIT 26.1 % (36.0-48.0); HEMOGLOBIN 8.8 g/dL (12.0-16.0)
[2019-04-15] MEDS: METOPROLOL TARTRATE 50MG TABLET PO SCH (20:37)
[2019-04-15] MEDS: NICARDIPINE 100 MG in SODIUM CHLORIDE 0.9% 60 ML IV PRN (20:38)
[2019-04-16] VITALS (91 sets, daily range): BP systolic 104–175; BP diastolic 50–97
[2019-04-16] MEDS: DEXT 5%/LACTATED RINGERS 1,000 ML IV SCH (03:56)
[2019-04-16] MEDS: VANCOMYCIN 1500MG in DEXTROSE 5% WATER 250ML IV SCH ×2 (03:56→18:25)
[2019-04-16 05:40] LABS: BASOPHILS % 0.3 % (0.0-2.0); EOSINOPHILS % 0.9 % (0.0-5.0); HEMATOCRIT. 26.2 % (36.0-48.0); HEMOGLOBIN. 8.6 g/dL (12.0-16.0); LYMPHOCYTES % 28.1 % (20.0-50.0); MEAN CORPUSCULAR HEMOGLOBIN 28.7 pg (28.0-32.0); MEAN CORPUSCULAR VOLUME 87.5 fL (81.0-99.0); MEAN PLATELET VOLUME 8.1 fl (7.4-10.4); MONOCYTES % 6.3 % (2.0-8.0); NEUTROPHILS % 64.4 % (40.0-76.0); PLATELET 276 x1000/uL (130-400)
[2019-04-16] MEDS: CEFTRIAXONE 2 G in DEXTROSE 5% WATER 50 ML IV SCH (05:44)
[2019-04-16 06:01] LABS: PHOSPHORUS 2.3 mg/dL (2.5-4.9)
[2019-04-16] MEDS: AMLODIPINE 5MG TABLET PO SCH ×2 (08:12→21:12)
[2019-04-16] MEDS: METOPROLOL TARTRATE 50MG TABLET PO SCH ×2 (08:12→21:12)
[2019-04-16] MEDS: ASPIRIN 81MG TABLET PO SCH (08:13)
[2019-04-16] MEDS ORDERED: POTASSIUM PHOS,M-BASIC-D-BASIC 30 MMOL in DEXTROSE 5% WATER 1,000 ML IV SCH (08:15)
[2019-04-16] MEDS ORDERED: POTASSIUM CHLORIDE 20MEQ TABLET SR PO NR (08:30)
[2019-04-16] MEDS ORDERED: ASPIRIN 81MG EC TABLET PO SCH (09:00)
[2019-04-16] MEDS ORDERED: ASPIRIN 81MG TABLET PO SCH (09:00)
[2019-04-16] MEDS ORDERED: MAGNESIUM 4 G PREMIX 100 ML IV NR (09:30)
[2019-04-16] MEDS ORDERED: POTASSIUM PHOS,M-BASIC-D-BASIC 30 MMOL in DEXT 5% WATER 500 ML IV NR (10:00)
[2019-04-16] MEDS ORDERED: POTASSIUM CHLORIDE 20MEQ/PACKET PO NR (10:30)
[2019-04-16] MEDS: NICARDIPINE 100 MG in SODIUM CHLORIDE 0.9% 60 ML IV PRN (10:50)
[2019-04-16] MEDS: HYDROMORPHONE PCA 10MG/50ML IV PRN (10:52)
[2019-04-16] MEDS: CLONIDINE 0.1MG TABLET PO SCH ×3 (13:23→21:11)
[2019-04-17] VITALS (82 sets, daily range): BP systolic 98–168; BP diastolic 35–81
[2019-04-17] MEDS: CEFTRIAXONE 2 G in DEXTROSE 5% WATER 50 ML IV SCH (03:25)
[2019-04-17] MEDS: CLONIDINE 0.1MG TABLET PO SCH ×3 (05:00→22:00)
[2019-04-17 05:09] LABS: BASOPHILS % 0.4 % (0.0-2.0); EOSINOPHILS % 0.7 % (0.0-5.0); HEMATOCRIT. 26.9 % (36.0-48.0); LYMPHOCYTES % 27.3 % (20.0-50.0); MEAN CORPUSCULAR HEMOGLOBIN 29.2 pg (28.0-32.0); MEAN CORPUSCULAR VOLUME 87.4 fL (81.0-99.0); MEAN PLATELET VOLUME 8.7 fl (7.4-10.4); MONOCYTES % 6.5 % (2.0-8.0); NEUTROPHILS % 65.1 % (40.0-76.0); PLATELET 320 x1000/uL (130-400); RED BLOOD CELL COUNT 3.08 mill/uL (4.2-5.4); RED CELL DISTRIBUTION WIDTH 15.2 % (11.6-14.6)
[2019-04-17 05:25] LABS: PHOSPHORUS 3.2 mg/dL (2.5-4.9)
[2019-04-17] MEDS: ASPIRIN 81MG TABLET PO SCH (08:23)
[2019-04-17] MEDS: METOPROLOL TARTRATE 50MG TABLET PO SCH ×2 (08:23→21:00)
[2019-04-17] MEDS: AMLODIPINE 5MG TABLET PO SCH ×2 (08:23→21:00)
[2019-04-17] MEDS ORDERED: MAGNESIUM 2 G PREMIX 50 ML IV NR (08:30)
[2019-04-17] MEDS ORDERED: LACTULOSE 20G/30ML UDC PO NR (09:30)
[2019-04-17] MEDS: PANTOPRAZOLE SODIUM 40 MG/VIAL IV SCH (11:08)
[2019-04-17] MEDS: VANCOMYCIN 1500MG in DEXTROSE 5% WATER 250ML IV SCH (11:15)
[2019-04-17] MEDS: HYDRALAZINE 20MG/ML VIAL IV PRN (13:31)
[2019-04-17 14:41] LABS: CLARITY URINE TURBID (CLEAR); COLOR URINE YELLOW (YELLOW); KETONES URINE NEGATIVE (NEGATIVE); LEUKOCYTE ESTERASE URINE 3+ (NEGATIVE); NITRITE URINE NEGATIVE (NEGATIVE); OCCULT BLOOD URINE 2+ (NEGATIVE); PH URINE 5.5 (4.5-8.0); PROTEIN URINE 2+ (NEGATIVE); SPECIFIC GRAVITY URINE 1.016 (1.005-1.030); UROBILINOGEN URINE 0.2 E.U./dL (0.2-1.0)
[2019-04-18] VITALS (78 sets, daily range): BP systolic 100–164; BP diastolic 51–81
[2019-04-18] MEDS: VANCOMYCIN 1500MG in DEXTROSE 5% WATER 250ML IV SCH (03:11)
[2019-04-18] MEDS: HYDRALAZINE 20MG/ML VIAL IV PRN ×2 (05:09→12:33)
[2019-04-18] MEDS: CEFTRIAXONE 2 G in DEXTROSE 5% WATER 50 ML IV SCH (05:15)
[2019-04-18 05:49] LABS: BASOPHILS % 0.6 % (0.0-2.0); EOSINOPHILS % 1.8 % (0.0-5.0); HEMATOCRIT. 26.3 % (36.0-48.0); HEMOGLOBIN. 8.5 g/dL (12.0-16.0); LYMPHOCYTES % 32.7 % (20.0-50.0); MEAN CORPUSCULAR HEMOGLOBIN 28.4 pg (28.0-32.0); MEAN CORPUSCULAR VOLUME 87.2 fL (81.0-99.0); MEAN PLATELET VOLUME 8.6 fl (7.4-10.4); MONOCYTES % 7.3 % (2.0-8.0); NEUTROPHILS % 57.6 % (40.0-76.0); PLATELET 347 x1000/uL (130-400); RED BLOOD CELL COUNT 3.01 mill/uL (4.2-5.4); RED CELL DISTRIBUTION WIDTH 14.5 % (11.6-14.6)
[2019-04-18 06:06] LABS: PHOSPHORUS 3.2 mg/dL (2.5-4.9)
[2019-04-18] MEDS: CLONIDINE 0.1MG TABLET PO SCH ×3 (06:34→21:19)
[2019-04-18] MEDS: AMLODIPINE 5MG TABLET PO SCH ×2 (08:33→21:19)
[2019-04-18] MEDS: METOPROLOL TARTRATE 50MG TABLET PO SCH ×2 (08:34→21:18)
[2019-04-18] MEDS: ASPIRIN 81MG TABLET PO SCH (08:34)
[2019-04-18 08:40] LABS: CREATINE KINASE 198 IU/L (26-192)
[2019-04-18] MEDS: PANTOPRAZOLE SODIUM 40 MG/VIAL IV SCH (08:42)
[2019-04-18] MEDS ORDERED: MORPHINE SULFATE 2 MG/ML CPJ (NOT FOR IM USE) IV PRN (09:00)
[2019-04-18] MEDS ORDERED: LACTULOSE 20G/30ML UDC PO SCH (09:00)
[2019-04-18] MEDS ORDERED: HYDROMORPHONE HCL/PF 2MG/ML CPJ IM PRN (09:30)
[2019-04-18] MEDS ORDERED: POTASSIUM CHLORIDE 20MEQ/PACKET PO SCH (10:45)
[2019-04-18] MEDS ORDERED: FLUCONAZOLE 150MG TABLET PO NR (12:00)
[2019-04-18] MEDS: HYDROCODONE/ACETAMINOPHEN 5/325MG TABLET PO PRN ×2 (12:33→21:19)
[2019-04-19] VITALS (32 sets, daily range): BP systolic 103–166; BP diastolic 44–97
[2019-04-19] MEDS: HYDROMORPHONE HCL/PF 2MG/ML CPJ IV PRN ×2 (00:32→07:47)
[2019-04-19] MEDS: CEFTRIAXONE 2 G in DEXTROSE 5% WATER 50 ML IV SCH (03:10)
[2019-04-19] MEDS: HYDROCODONE/ACETAMINOPHEN 5/325MG TABLET PO PRN ×2 (05:24→11:29)
[2019-04-19] MEDS: CLONIDINE 0.1MG TABLET PO SCH ×3 (05:24→22:00)
[2019-04-19 05:48] LABS: BASOPHILS % 0.4 % (0.0-2.0); EOSINOPHILS % 1.7 % (0.0-5.0); HEMATOCRIT. 26.7 % (36.0-48.0); HEMOGLOBIN. 8.7 g/dL (12.0-16.0); LYMPHOCYTES % 27.2 % (20.0-50.0); MEAN CORPUSCULAR HEMOGLOBIN 28.5 pg (28.0-32.0); MEAN CORPUSCULAR VOLUME 87.2 fL (81.0-99.0); MEAN PLATELET VOLUME 8.1 fl (7.4-10.4); MONOCYTES % 7.3 % (2.0-8.0); NEUTROPHILS % 63.4 % (40.0-76.0); PLATELET 337 x1000/uL (130-400); RED BLOOD CELL COUNT 3.06 mill/uL (4.2-5.4)
[2019-04-19] MEDS: PANTOPRAZOLE SODIUM 40 MG/VIAL IV SCH ×2 (08:21→23:10)
[2019-04-19] MEDS: METOPROLOL TARTRATE 50MG TABLET PO SCH ×2 (08:21→23:11)
[2019-04-19] MEDS: ASPIRIN 81MG TABLET PO SCH (08:21)
[2019-04-19] MEDS: AMLODIPINE 5MG TABLET PO SCH ×2 (08:22→23:11)
[2019-04-19] MEDS: SODIUM CHLORIDE 0.45% 1,000 ML IV SCH ×2 (08:47→23:10)
[2019-04-19] MEDS: IPRATROPIUM/ALBUTEROL 0.5-3(2.5)MG/3ML NEB HHN SCH (20:31)
[2019-04-20] VITALS: BP 136/60
[2019-04-20] MEDS: IPRATROPIUM/ALBUTEROL 0.5-3(2.5)MG/3ML NEB HHN SCH ×4 (02:55→21:04)
[2019-04-20 04:00] VITALS: BP 104/53
[2019-04-20] MEDS: HYDROMORPHONE HCL/PF 2MG/ML CPJ IV PRN ×3 (05:33→20:37)
[2019-04-20] MEDS: CEFTRIAXONE 2 G in DEXTROSE 5% WATER 50 ML IV SCH (05:54)
[2019-04-20] MEDS: CLONIDINE 0.1MG TABLET PO SCH ×3 (06:00→21:25)
[2019-04-20 08:06] VITALS: BP 110/65
[2019-04-20] MEDS: AMLODIPINE 5MG TABLET PO SCH ×2 (09:00→20:36)
[2019-04-20] MEDS: SODIUM CHLORIDE 0.45% 1,000 ML IV SCH ×2 (09:32→21:24)
[2019-04-20] MEDS: ASPIRIN 81MG TABLET PO SCH (09:32)
[2019-04-20] MEDS: PANTOPRAZOLE SODIUM 40 MG/VIAL IV SCH ×2 (09:32→20:37)
[2019-04-20] MEDS: METOPROLOL TARTRATE 50MG TABLET PO SCH ×2 (09:32→20:36)
[2019-04-20] MEDS: HYDROCODONE/ACETAMINOPHEN 5/325MG TABLET PO PRN (09:35)
[2019-04-20 12:06] VITALS: BP 169/74
[2019-04-20 12:10] LABS: BASOPHILS % 0.5 % (0.0-2.0); EOSINOPHILS % 0.4 % (0.0-5.0); HEMATOCRIT. 25.3 % (36.0-48.0); HEMOGLOBIN. 8.4 g/dL (12.0-16.0); MEAN CORPUSCULAR HEMOGLOBIN 28.6 pg (28.0-32.0); MEAN CORPUSCULAR VOLUME 86.7 fL (81.0-99.0); MEAN PLATELET VOLUME 8.1 fl (7.4-10.4); MONOCYTES % 6.3 % (2.0-8.0); NEUTROPHILS % 54.8 % (40.0-76.0); PLATELET 332 x1000/uL (130-400); RED BLOOD CELL COUNT 2.92 mill/uL (4.2-5.4); RED CELL DISTRIBUTION WIDTH 14.8 % (11.6-14.6)
[2019-04-20 16:42] VITALS: BP 140/57
[2019-04-20] MEDS: ONDANSETRON INJ IV PRN ×2 (16:47→20:37)
[2019-04-20 20:30] VITALS: BP 136/56
[2019-04-21] VITALS: BP 126/51
[2019-04-21] MEDS: IPRATROPIUM/ALBUTEROL 0.5-3(2.5)MG/3ML NEB HHN SCH ×5 (01:38→19:51)
[2019-04-21 04:00] VITALS: BP 135/59
[2019-04-21 06:02] LABS: BASOPHILS % 0.5 % (0.0-2.0); HEMATOCRIT. 22.7 % (36.0-48.0); HEMOGLOBIN. 7.6 g/dL (12.0-16.0); LYMPHOCYTES % 26.7 % (20.0-50.0); MEAN CORPUSCULAR VOLUME 86.7 fL (81.0-99.0); MEAN PLATELET VOLUME 8.3 fl (7.4-10.4); NEUTROPHILS % 60.8 % (40.0-76.0); PLATELET 282 x1000/uL (130-400); RED BLOOD CELL COUNT 2.62 mill/uL (4.2-5.4); RED CELL DISTRIBUTION WIDTH 14.5 % (11.6-14.6)
[2019-04-21] MEDS: CEFTRIAXONE 2 G in DEXTROSE 5% WATER 50 ML IV SCH (06:05)
[2019-04-21] MEDS: CLONIDINE 0.1MG TABLET PO SCH ×3 (06:05→21:45)
[2019-04-21 08:03] VITALS: BP 116/62
[2019-04-21] MEDS: METOPROLOL TARTRATE 50MG TABLET PO SCH ×2 (08:58→21:44)
[2019-04-21] MEDS: ASPIRIN 81MG TABLET PO SCH (08:58)
[2019-04-21] MEDS: PANTOPRAZOLE SODIUM 40 MG/VIAL IV SCH ×2 (08:58→21:43)
[2019-04-21] MEDS: AMLODIPINE 5MG TABLET PO SCH ×2 (08:58→21:43)
[2019-04-21] MEDS: HYDROMORPHONE HCL/PF 2MG/ML CPJ IV PRN (08:59)
[2019-04-21] MEDS: ONDANSETRON INJ IV PRN (09:14)
[2019-04-21] MEDS ORDERED: POTASSIUM CHLORIDE 20MEQ TABLET SR PO NR (09:15)
[2019-04-21] MEDS: SODIUM CHLORIDE 0.45% 1,000 ML IV SCH ×2 (09:15→22:04)
[2019-04-21] MEDS: HYDROCODONE/ACETAMINOPHEN 5/325MG TABLET PO PRN (11:01)
[2019-04-21 12:04] VITALS: BP 130/60
[2019-04-21] MEDS ORDERED: VANCOMYCIN 1500MG in DEXTROSE 5% WATER 250ML IV SCH (13:30)
[2019-04-21 14:36] LABS: BG BASE EXCESS 3.9 mmol/L (-2.0-2.0); BG CARBOXYHEMOGLOBIN 0.1 % (0.5-1.5); BG DEOXYHEMOGLOBIN 11.8 % (0.0-5.0); BG FRACTION INSPIRED OXYGEN 36; BG HCO3 ACT 29.8 mmol/L (22.0-26.0); BG METHEMOGLOBIN 0.3 % (0.0-1.5); BG OXYGEN SATURATION 88.2 % (92.0-98.5); BG OXYHEMOGLOBIN 87.8 % (94.0-97.0); BG PCO2 52.2 mmHg (35.0-45.0); BG PH 7.375 (7.350-7.450); BG SAMPLE SITE RIGHT BRACHIAL; BG TOTAL HEMOGLOBIN 9.4 g/dL (12.0-18.0); BG VENT MODE NASAL CANNULA
[2019-04-21 15:57] VITALS: BP 113/55
[2019-04-21 20:00] VITALS: BP 145/58
[2019-04-21] MEDS: ACETAMINOPHEN 325MG TABLET PO PRN (22:12)
[2019-04-22] VITALS: BP 110/59
[2019-04-22] MEDS: IPRATROPIUM/ALBUTEROL 0.5-3(2.5)MG/3ML NEB HHN SCH ×3 (02:37→20:54)
[2019-04-22] MEDS: HYDROMORPHONE HCL/PF 2MG/ML CPJ IV PRN ×3 (03:03→22:35)
[2019-04-22 04:00] VITALS: BP 131/53
[2019-04-22] MEDS: SODIUM CHLORIDE 0.45% 1,000 ML IV SCH (05:26)
[2019-04-22] MEDS: CEFTRIAXONE 2 G in DEXTROSE 5% WATER 50 ML IV SCH (05:26)
[2019-04-22] MEDS: HYDROCODONE/ACETAMINOPHEN 5/325MG TABLET PO PRN ×2 (05:45→18:35)
[2019-04-22 06:22] LABS: BASOPHILS % 0.4 % (0.0-2.0); EOSINOPHILS % 3.5 % (0.0-5.0); HEMATOCRIT. 23.8 % (36.0-48.0); LYMPHOCYTES % 41.3 % (20.0-50.0); MEAN CORPUSCULAR HEMOGLOBIN 29.1 pg (28.0-32.0); MEAN CORPUSCULAR VOLUME 86.7 fL (81.0-99.0); MEAN PLATELET VOLUME 8.3 fl (7.4-10.4); MONOCYTES % 8.7 % (2.0-8.0); NEUTROPHILS % 46.1 % (40.0-76.0); PLATELET 315 x1000/uL (130-400); RED BLOOD CELL COUNT 2.74 mill/uL (4.2-5.4); RED CELL DISTRIBUTION WIDTH 14.5 % (11.6-14.6)
[2019-04-22] MEDS: CLONIDINE 0.1MG TABLET PO SCH ×3 (06:59→22:21)
[2019-04-22 08:00] VITALS: BP 143/54
[2019-04-22] MEDS: IPRATROPIUM/ALBUTEROL 0.5-3(2.5)MG/3ML NEB HHN PRN (08:34)
[2019-04-22] MEDS: PANTOPRAZOLE SODIUM 40 MG/VIAL IV SCH (09:18)
[2019-04-22] MEDS: ASPIRIN 81MG TABLET PO SCH (09:19)
[2019-04-22] MEDS: METOPROLOL TARTRATE 50MG TABLET PO SCH (09:19)
[2019-04-22] MEDS: AMLODIPINE 5MG TABLET PO SCH ×2 (09:19→21:30)
[2019-04-22] MEDS ORDERED: METOLAZONE 2.5MG TABLET PO ONE (11:15)
[2019-04-22 12:00] VITALS: BP 146/70
[2019-04-22] MEDS ORDERED: FUROSEMIDE 40MG/4ML VIAL IVP SCH (12:00)
[2019-04-22] MEDS: ONDANSETRON INJ IV PRN (12:45)
[2019-04-22] MEDS: FUROSEMIDE 40MG/4ML VIAL IVP SCH (12:45)
[2019-04-22 16:00] VITALS: BP 132/69
[2019-04-22 20:00] VITALS: BP 140/54
[2019-04-22] MEDS: FAMOTIDINE 20MG/2ML VIAL IV SCH (21:30)
[2019-04-22] MEDS: METOPROLOL TARTRATE 25MG TABLET PO SCH (21:33)
[2019-04-23] VITALS: BP 118/47
[2019-04-23] MEDS: IPRATROPIUM/ALBUTEROL 0.5-3(2.5)MG/3ML NEB HHN SCH ×4 (02:25→21:21)
[2019-04-23 04:00] VITALS: BP 129/54
[2019-04-23] MEDS: CEFTRIAXONE 2 G in DEXTROSE 5% WATER 50 ML IV SCH (05:34)
[2019-04-23] MEDS: CLONIDINE 0.1MG TABLET PO SCH ×3 (05:34→22:00)
[2019-04-23] MEDS: HYDROMORPHONE HCL/PF 2MG/ML CPJ IV PRN ×2 (06:16→17:02)
[2019-04-23 08:00] VITALS: BP 145/101
[2019-04-23 08:46] LABS: BG BASE EXCESS 3.3 mmol/L (-2.0-2.0); BG CARBOXYHEMOGLOBIN 0.3 % (0.5-1.5); BG DEOXYHEMOGLOBIN 6.6 % (0.0-5.0); BG FRACTION INSPIRED OXYGEN 90; BG METHEMOGLOBIN 0.4 % (0.0-1.5); BG OXYGEN SATURATION 93.4 % (92.0-98.5); BG OXYHEMOGLOBIN 92.7 % (94.0-97.0); BG PCO2 49.4 mmHg (35.0-45.0); BG PH 7.386 (7.350-7.450); BG PO2 69.7 mmHg (75.0-100.0); BG SAMPLE SITE RIGHT RADIAL; BG TOTAL HEMOGLOBIN 10.7 g/dL (12.0-18.0); BG VENT MODE VAPOTHERM
[2019-04-23] MEDS: FUROSEMIDE 40MG/4ML VIAL IVP SCH (09:00)
[2019-04-23] MEDS: ASPIRIN 81MG TABLET PO SCH (09:01)
[2019-04-23] MEDS: AMLODIPINE 5MG TABLET PO SCH ×2 (09:01→20:57)
[2019-04-23] MEDS: METOPROLOL TARTRATE 25MG TABLET PO SCH ×2 (09:01→20:58)
[2019-04-23] MEDS ORDERED: BISACODYL 10MG SUPP PR PRN (11:30)
[2019-04-23] MEDS ORDERED: BISACODYL 10MG SUPP PR ONE (11:30)
[2019-04-23] MEDS ORDERED: BISACODYL 5MG TABLET PO ONE (11:45)
[2019-04-23 12:00] VITALS: BP 138/67
[2019-04-23 16:00] VITALS: BP 140/67
[2019-04-23] MEDS ORDERED: HYDROCODONE/ACETAMINOPHEN 5/325MG TABLET PO PRN ×2 (16:30→16:45)
[2019-04-23 16:44] LABS: BASOPHILS % 0.5 % (0.0-2.0); EOSINOPHILS % 2.1 % (0.0-5.0); HEMATOCRIT. 25.6 % (36.0-48.0); HEMOGLOBIN. 8.5 g/dL (12.0-16.0); LYMPHOCYTES % 39.8 % (20.0-50.0); MEAN CORPUSCULAR HEMOGLOBIN 28.9 pg (28.0-32.0); MEAN CORPUSCULAR VOLUME 86.6 fL (81.0-99.0); MEAN PLATELET VOLUME 8.3 fl (7.4-10.4); MONOCYTES % 5.9 % (2.0-8.0); NEUTROPHILS % 51.7 % (40.0-76.0); PLATELET 278 x1000/uL (130-400); RED BLOOD CELL COUNT 2.95 mill/uL (4.2-5.4); RED CELL DISTRIBUTION WIDTH 14.2 % (11.6-14.6)
[2019-04-23] MEDS: VANCOMYCIN 1500MG in DEXTROSE 5% WATER 250ML IV SCH (18:02)
[2019-04-23 20:00] VITALS: BP 137/52
[2019-04-23] MEDS: FAMOTIDINE 20MG/2ML VIAL IV SCH (20:58)
[2019-04-24] VITALS: BP 127/63
[2019-04-24] MEDS: IPRATROPIUM/ALBUTEROL 0.5-3(2.5)MG/3ML NEB HHN SCH ×4 (01:13→21:12)
[2019-04-24 04:00] VITALS: BP 143/56
[2019-04-24] MEDS: ACETAMINOPHEN 325MG TABLET PO PRN (05:11)
[2019-04-24] MEDS: CLONIDINE 0.1MG TABLET PO SCH ×3 (05:11→21:20)
[2019-04-24] MEDS: CEFTRIAXONE 2 G in DEXTROSE 5% WATER 50 ML IV SCH (05:11)
[2019-04-24 07:22] LABS: BASOPHILS % 0.3 % (0.0-2.0); HEMATOCRIT. 23.5 % (36.0-48.0); HEMOGLOBIN. 7.8 g/dL (12.0-16.0); LYMPHOCYTES % 27.9 % (20.0-50.0); MEAN CORPUSCULAR HEMOGLOBIN 28.9 pg (28.0-32.0); MEAN CORPUSCULAR VOLUME 86.4 fL (81.0-99.0); MEAN PLATELET VOLUME 8.2 fl (7.4-10.4); MONOCYTES % 7.1 % (2.0-8.0); NEUTROPHILS % 63.7 % (40.0-76.0); PLATELET 272 x1000/uL (130-400); RED BLOOD CELL COUNT 2.72 mill/uL (4.2-5.4); RED CELL DISTRIBUTION WIDTH 14.3 % (11.6-14.6)
[2019-04-24 08:15] VITALS: BP 112/56
[2019-04-24] MEDS: FUROSEMIDE 40MG/4ML VIAL IVP SCH (09:18)
[2019-04-24] MEDS: ASPIRIN 81MG TABLET PO SCH (09:18)
[2019-04-24] MEDS: METOPROLOL TARTRATE 25MG TABLET PO SCH ×2 (09:19→21:19)
[2019-04-24] MEDS: AMLODIPINE 5MG TABLET PO SCH ×2 (09:19→21:19)
[2019-04-24 12:00] VITALS: BP 113/51
[2019-04-24] MEDS ORDERED: POTASSIUM CHLORIDE 20MEQ TABLET SR PO NR (12:15)
[2019-04-24 16:00] VITALS: BP 109/50
[2019-04-24 20:00] VITALS: BP 130/60
[2019-04-24] MEDS: FAMOTIDINE 20MG/2ML VIAL IV SCH (21:16)
[2019-04-24] MEDS: HYDROMORPHONE HCL/PF 2MG/ML CPJ IV PRN (21:18)
[2019-04-25] VITALS (7 sets, daily range): BP systolic 115–149; BP diastolic 50–68
[2019-04-25] MEDS: IPRATROPIUM/ALBUTEROL 0.5-3(2.5)MG/3ML NEB HHN SCH ×4 (01:20→20:13)
[2019-04-25] MEDS: HYDROMORPHONE HCL/PF 2MG/ML CPJ IV PRN ×4 (03:11→22:53)
[2019-04-25] MEDS: CEFTRIAXONE 2 G in DEXTROSE 5% WATER 50 ML IV SCH (05:52)
[2019-04-25] MEDS: CLONIDINE 0.1MG TABLET PO SCH ×3 (05:53→22:50)
[2019-04-25 07:23] LABS: BASOPHILS % 0.2 % (0.0-2.0); EOSINOPHILS % 0.8 % (0.0-5.0); HEMATOCRIT. 24.7 % (36.0-48.0); HEMOGLOBIN. 8.2 g/dL (12.0-16.0); LYMPHOCYTES % 27.7 % (20.0-50.0); MEAN CORPUSCULAR HEMOGLOBIN 28.5 pg (28.0-32.0); MONOCYTES % 5.6 % (2.0-8.0); NEUTROPHILS % 65.7 % (40.0-76.0); PLATELET 265 x1000/uL (130-400); RED BLOOD CELL COUNT 2.87 mill/uL (4.2-5.4); RED CELL DISTRIBUTION WIDTH 14.2 % (11.6-14.6)
[2019-04-25] MEDS ORDERED: POTASSIUM CHLORIDE 20MEQ TABLET SR PO SCH (08:45)
[2019-04-25] MEDS: ASPIRIN 81MG TABLET PO SCH (10:27)
[2019-04-25] MEDS: METOPROLOL TARTRATE 25MG TABLET PO SCH ×2 (10:28→22:50)
[2019-04-25] MEDS: AMLODIPINE 5MG TABLET PO SCH ×2 (10:30→22:51)
[2019-04-25] MEDS: VANCOMYCIN 1500MG in DEXTROSE 5% WATER 250ML IV SCH (16:59)
[2019-04-25] MEDS: VANCOMYCIN HCL 1000 MG/20 ML ORAL PO SCH ×2 (18:15→23:04)
[2019-04-25] MEDS: FAMOTIDINE 20MG/2ML VIAL IV SCH (22:51)
[2019-04-26] VITALS (11 sets, daily range): BP systolic 92–142; BP diastolic 40–63
[2019-04-26] MEDS: IPRATROPIUM/ALBUTEROL 0.5-3(2.5)MG/3ML NEB HHN SCH ×4 (03:21→21:17)
[2019-04-26] MEDS: VANCOMYCIN HCL 1000 MG/20 ML ORAL PO SCH ×2 (05:31→13:34)
[2019-04-26] MEDS: CLONIDINE 0.1MG TABLET PO SCH ×3 (05:31→21:28)
[2019-04-26] MEDS: CEFTRIAXONE 2 G in DEXTROSE 5% WATER 50 ML IV SCH (05:31)
[2019-04-26] MEDS: HYDROMORPHONE HCL/PF 2MG/ML CPJ IV PRN (05:32)
[2019-04-26 06:57] LABS: CHLORIDE 96 mEq/L (98-107)
[2019-04-26 07:03] LABS: PHOSPHORUS 2.4 mg/dL (2.5-4.9)
[2019-04-26] MEDS ORDERED: POTASSIUM CHLORIDE 20MEQ TABLET SR PO SCH (09:00)
[2019-04-26] MEDS: AMLODIPINE 5MG TABLET PO SCH ×2 (09:35→21:00)
[2019-04-26] MEDS: FUROSEMIDE 40MG TABLET PO SCH (09:35)
[2019-04-26] MEDS: POTASSIUM CHLORIDE 20MEQ/PACKET PO SCH ×2 (09:35→16:51)
[2019-04-26] MEDS: METOPROLOL TARTRATE 25MG TABLET PO SCH ×2 (09:35→21:00)
[2019-04-26] MEDS ORDERED: MAGNESIUM 4 G PREMIX 100 ML IV NR (10:00)
[2019-04-26] MEDS ORDERED: SODIUM PHOS,M-BASIC-D-BASIC 20 MM in DEXT 5% WATER 243.3333 ML IV NR (10:30)
[2019-04-26 10:41] LABS: BASOPHILS % 0.4 % (0.0-2.0); EOSINOPHILS % 1.5 % (0.0-5.0); HEMATOCRIT. 23.3 % (36.0-48.0); HEMOGLOBIN. 7.6 g/dL (12.0-16.0); LYMPHOCYTES % 29.9 % (20.0-50.0); MEAN CORPUSCULAR HEMOGLOBIN 28.2 pg (28.0-32.0); MEAN CORPUSCULAR VOLUME 86.4 fL (81.0-99.0); MEAN PLATELET VOLUME 8.6 fl (7.4-10.4); MONOCYTES % 5.1 % (2.0-8.0); NEUTROPHILS % 63.1 % (40.0-76.0); PLATELET 135 x1000/uL (130-400); RED CELL DISTRIBUTION WIDTH 14.5 % (11.6-14.6)
[2019-04-26] MEDS: HYDROCODONE/ACETAMINOPHEN 10/325MG TABLET PO PRN ×3 (11:37→21:30)
[2019-04-26 13:25] LABS: BG BASE EXCESS 7.9 mmol/L (-2.0-2.0); BG CARBOXYHEMOGLOBIN 0.3 % (0.5-1.5); BG DEOXYHEMOGLOBIN 4.8 % (0.0-5.0); BG FRACTION INSPIRED OXYGEN 80; BG HCO3 ACT 32.8 mmol/L (22.0-26.0); BG METHEMOGLOBIN 0.3 % (0.0-1.5); BG OXYGEN SATURATION 95.2 % (92.0-98.5); BG OXYHEMOGLOBIN 94.6 % (94.0-97.0); BG PCO2 48.6 mmHg (35.0-45.0); BG PH 7.447 (7.350-7.450); BG PO2 76.6 mmHg (75.0-100.0); BG SAMPLE SITE RIGHT RADIAL; BG TOTAL HEMOGLOBIN 8.5 g/dL (12.0-18.0); BG VENT MODE VAPOTHERM
[2019-04-26] MEDS: FAMOTIDINE 20MG/2ML VIAL IV SCH (21:27)
[2019-04-27] VITALS (9 sets, daily range): BP systolic 97–147; BP diastolic 46–84
[2019-04-27] MEDS: VANCOMYCIN 750 MG PREMIX 150 ML IV SCH (00:20)
[2019-04-27] MEDS: IPRATROPIUM/ALBUTEROL 0.5-3(2.5)MG/3ML NEB HHN SCH ×4 (02:23→21:42)
[2019-04-27] MEDS: CEFTRIAXONE 2 G in DEXTROSE 5% WATER 50 ML IV SCH (05:09)
[2019-04-27] MEDS: HYDROCODONE/ACETAMINOPHEN 10/325MG TABLET PO PRN ×3 (05:10→17:04)
[2019-04-27] MEDS: CLONIDINE 0.1MG TABLET PO SCH ×3 (05:15→22:00)
[2019-04-27 07:53] LABS: BASOPHILS % 0.3 % (0.0-2.0); EOSINOPHILS % 3.1 % (0.0-5.0); HEMOGLOBIN. 7.7 g/dL (12.0-16.0); LYMPHOCYTES % 34.2 % (20.0-50.0); MEAN CORPUSCULAR HEMOGLOBIN 28.6 pg (28.0-32.0); MEAN CORPUSCULAR VOLUME 85.3 fL (81.0-99.0); NEUTROPHILS % 56.4 % (40.0-76.0); PLATELET 264 x1000/uL (130-400); RED BLOOD CELL COUNT 2.69 mill/uL (4.2-5.4); RED CELL DISTRIBUTION WIDTH 14.4 % (11.6-14.6)
[2019-04-27 08:28] LABS: PHOSPHORUS 3.2 mg/dL (2.5-4.9)
[2019-04-27] MEDS: POTASSIUM CHLORIDE 20MEQ/PACKET PO SCH ×2 (09:29→20:00)
[2019-04-27] MEDS: METOPROLOL TARTRATE 25MG TABLET PO SCH ×2 (09:30→21:00)
[2019-04-27] MEDS: AMLODIPINE 5MG TABLET PO SCH ×2 (09:30→21:00)
[2019-04-27] MEDS: FUROSEMIDE 40MG TABLET PO SCH (09:30)
[2019-04-27] MEDS ORDERED: POTASSIUM CHLORIDE 20MEQ/PACKET PO SCH (19:00)
[2019-04-27] MEDS: FAMOTIDINE 20MG/2ML VIAL IV SCH (21:00)
[2019-04-28] VITALS (9 sets, daily range): BP systolic 101–137; BP diastolic 39–85
[2019-04-28] MEDS: IPRATROPIUM/ALBUTEROL 0.5-3(2.5)MG/3ML NEB HHN SCH ×4 (03:35→20:20)
[2019-04-28] MEDS: HYDROCODONE/ACETAMINOPHEN 10/325MG TABLET PO PRN ×2 (04:22→13:46)
[2019-04-28] MEDS: VANCOMYCIN 750 MG PREMIX 150 ML IV SCH (06:25)
[2019-04-28] MEDS: CLONIDINE 0.1MG TABLET PO SCH ×3 (06:27→22:00)
[2019-04-28] MEDS: CEFTRIAXONE 2 G in DEXTROSE 5% WATER 50 ML IV SCH (06:28)
[2019-04-28 07:29] LABS: BASOPHILS % 0.4 % (0.0-2.0); EOSINOPHILS % 3.2 % (0.0-5.0); HEMATOCRIT. 22.9 % (36.0-48.0); HEMOGLOBIN. 7.5 g/dL (12.0-16.0); LYMPHOCYTES % 33.6 % (20.0-50.0); MEAN CORPUSCULAR HEMOGLOBIN 28.1 pg (28.0-32.0); MEAN CORPUSCULAR VOLUME 85.6 fL (81.0-99.0); MEAN PLATELET VOLUME 7.5 fl (7.4-10.4); MONOCYTES % 7.5 % (2.0-8.0); NEUTROPHILS % 55.3 % (40.0-76.0); PLATELET 269 x1000/uL (130-400); RED BLOOD CELL COUNT 2.67 mill/uL (4.2-5.4); RED CELL DISTRIBUTION WIDTH 14.8 % (11.6-14.6)
[2019-04-28] MEDS: METOPROLOL TARTRATE 25MG TABLET PO SCH ×2 (09:00→20:42)
[2019-04-28] MEDS: AMLODIPINE 5MG TABLET PO SCH ×2 (09:00→20:43)
[2019-04-28] MEDS: FUROSEMIDE 40MG TABLET PO SCH (09:00)
[2019-04-28] MEDS: POTASSIUM CHLORIDE 20MEQ/PACKET PO SCH ×2 (09:45→16:12)
[2019-04-28] MEDS: FAMOTIDINE 20MG/2ML VIAL IV SCH (20:40)
[2019-04-29] VITALS (12 sets, daily range): BP systolic 113–160; BP diastolic 47–74
[2019-04-29] MEDS: VANCOMYCIN 750 MG PREMIX 150 ML IV SCH (00:37)
[2019-04-29] MEDS: IPRATROPIUM/ALBUTEROL 0.5-3(2.5)MG/3ML NEB HHN SCH ×4 (01:13→20:29)
[2019-04-29] MEDS: HYDROCODONE/ACETAMINOPHEN 10/325MG TABLET PO PRN ×3 (03:18→16:07)
[2019-04-29] MEDS: CEFTRIAXONE 2 G in DEXTROSE 5% WATER 50 ML IV SCH (05:30)
[2019-04-29] MEDS: CLONIDINE 0.1MG TABLET PO SCH ×3 (05:33→21:09)
[2019-04-29 08:44] LABS: INR 1.1; PARTIAL THROMBOPLASTIN TIME 34.2 sec (23.4-31.0); PROTHROMBIN TIME 11.8 sec (9.6-11.0)
[2019-04-29] MEDS: METOPROLOL TARTRATE 25MG TABLET PO SCH ×2 (09:02→21:08)
[2019-04-29] MEDS: POTASSIUM CHLORIDE 20MEQ/PACKET PO SCH ×2 (09:02→16:07)
[2019-04-29] MEDS: AMLODIPINE 5MG TABLET PO SCH ×2 (09:02→21:08)
[2019-04-29] MEDS: FUROSEMIDE 40MG TABLET PO SCH (09:02)
[2019-04-29] MEDS: ACETAMINOPHEN 325MG TABLET PO PRN (21:08)
[2019-04-29] MEDS: FAMOTIDINE 20MG/2ML VIAL IV SCH (21:09)
[2019-04-30] VITALS (12 sets, daily range): BP systolic 104–165; BP diastolic 37–93
[2019-04-30] MEDS: VANCOMYCIN 750 MG PREMIX 150 ML IV SCH (00:49)
[2019-04-30] MEDS: IPRATROPIUM/ALBUTEROL 0.5-3(2.5)MG/3ML NEB HHN SCH ×4 (00:52→20:08)
[2019-04-30] MEDS: CEFTRIAXONE 2 G in DEXTROSE 5% WATER 50 ML IV SCH (05:34)
[2019-04-30] MEDS: CLONIDINE 0.1MG TABLET PO SCH ×3 (05:35→21:50)
[2019-04-30 09:06] LABS: BASOPHILS % 0.4 % (0.0-2.0); EOSINOPHILS % 3.1 % (0.0-5.0); HEMATOCRIT. 23.6 % (36.0-48.0); HEMOGLOBIN. 7.9 g/dL (12.0-16.0); LYMPHOCYTES % 39.6 % (20.0-50.0); MEAN CORPUSCULAR VOLUME 86.1 fL (81.0-99.0); MEAN PLATELET VOLUME 7.8 fl (7.4-10.4); MONOCYTES % 7.8 % (2.0-8.0); NEUTROPHILS % 49.1 % (40.0-76.0); PLATELET 301 x1000/uL (130-400); RED BLOOD CELL COUNT 2.74 mill/uL (4.2-5.4); RED CELL DISTRIBUTION WIDTH 14.1 % (11.6-14.6)
[2019-04-30] MEDS: METOPROLOL TARTRATE 25MG TABLET PO SCH ×2 (09:13→21:00)
[2019-04-30] MEDS: AMLODIPINE 5MG TABLET PO SCH ×2 (09:14→21:00)
[2019-04-30] MEDS: FUROSEMIDE 40MG TABLET PO SCH (09:14)
[2019-04-30] MEDS: POTASSIUM CHLORIDE 20MEQ/PACKET PO SCH ×2 (09:14→17:47)
[2019-04-30] MEDS: HYDROCODONE/ACETAMINOPHEN 10/325MG TABLET PO PRN ×3 (09:32→18:36)
[2019-04-30] MEDS: ASPIRIN 81MG EC TABLET PO SCH (12:29)
[2019-04-30 13:16] LABS: BG BASE EXCESS 7.1 mmol/L (-2.0-2.0); BG CARBOXYHEMOGLOBIN 0.4 % (0.5-1.5); BG DEOXYHEMOGLOBIN 14.8 % (0.0-5.0); BG FRACTION INSPIRED OXYGEN 21; BG HCO3 ACT 31.5 mmol/L (22.0-26.0); BG METHEMOGLOBIN 0.3 % (0.0-1.5); BG OXYGEN SATURATION 85.1 % (92.0-98.5); BG OXYHEMOGLOBIN 84.5 % (94.0-97.0); BG PCO2 44.3 mmHg (35.0-45.0); BG PO2 46.8 mmHg (75.0-100.0); BG SAMPLE SITE RIGHT BRACHIAL; BG TOTAL HEMOGLOBIN 8.8 g/dL (12.0-18.0); BG VENT MODE ROOM AIR
[2019-04-30] MEDS: FAMOTIDINE 20MG/2ML VIAL IV SCH (21:50)
[2019-05-01] VITALS (11 sets, daily range): BP systolic 95–155; BP diastolic 34–91
[2019-05-01] MEDS: VANCOMYCIN 750 MG PREMIX 150 ML IV SCH (00:09)
[2019-05-01] MEDS: IPRATROPIUM/ALBUTEROL 0.5-3(2.5)MG/3ML NEB HHN SCH ×4 (01:56→20:58)
[2019-05-01] MEDS: HYDROCODONE/ACETAMINOPHEN 10/325MG TABLET PO PRN ×3 (04:36→20:31)
[2019-05-01] MEDS: CLONIDINE 0.1MG TABLET PO SCH ×3 (05:10→22:00)
[2019-05-01] MEDS: CEFTRIAXONE 2 G in DEXTROSE 5% WATER 50 ML IV SCH (05:30)
[2019-05-01 08:00] LABS: BASOPHILS % 0.4 % (0.0-2.0); EOSINOPHILS % 3.5 % (0.0-5.0); HEMATOCRIT. 23.5 % (36.0-48.0); HEMOGLOBIN. 7.8 g/dL (12.0-16.0); LYMPHOCYTES % 32.7 % (20.0-50.0); MEAN CORPUSCULAR HEMOGLOBIN 28.4 pg (28.0-32.0); MEAN PLATELET VOLUME 7.6 fl (7.4-10.4); MONOCYTES % 7.9 % (2.0-8.0); NEUTROPHILS % 55.5 % (40.0-76.0); PLATELET 287 x1000/uL (130-400); RED BLOOD CELL COUNT 2.74 mill/uL (4.2-5.4); RED CELL DISTRIBUTION WIDTH 14.4 % (11.6-14.6)
[2019-05-01] MEDS: FUROSEMIDE 40MG TABLET PO SCH (08:22)
[2019-05-01] MEDS: AMLODIPINE 5MG TABLET PO SCH ×2 (08:23→20:20)
[2019-05-01] MEDS: POTASSIUM CHLORIDE 20MEQ/PACKET PO SCH ×2 (08:23→16:53)
[2019-05-01] MEDS: ASPIRIN 81MG EC TABLET PO SCH (08:23)
[2019-05-01] MEDS: METOPROLOL TARTRATE 25MG TABLET PO SCH ×2 (08:38→20:20)
[2019-05-01] MEDS: MEGESTROL ACETATE 400 MG/10 ML UDC PO SCH ×2 (13:16→16:53)
[2019-05-01] MEDS: ACETAMINOPHEN 325MG TABLET PO PRN (16:52)
[2019-05-01] MEDS: FAMOTIDINE 20MG/2ML VIAL IV SCH (21:26)
[2019-05-02] VITALS (15 sets, daily range): BP systolic 100–142; BP diastolic 40–73
[2019-05-02] MEDS ORDERED: VANCOMYCIN HCL 750 MG in DEXT 5% WATER 250 ML IV SCH ×2
[2019-05-02] MEDS: IPRATROPIUM/ALBUTEROL 0.5-3(2.5)MG/3ML NEB HHN SCH ×4 (03:40→20:28)
[2019-05-02] MEDS: HYDROCODONE/ACETAMINOPHEN 10/325MG TABLET PO PRN ×5 (04:12→22:20)
[2019-05-02] MEDS: CEFTRIAXONE 2 G in DEXTROSE 5% WATER 50 ML IV SCH (05:15)
[2019-05-02] MEDS: CLONIDINE 0.1MG TABLET PO SCH ×3 (06:51→22:20)
[2019-05-02 07:04] LABS: HEMATOCRIT. 23.1 % (36.0-48.0); HEMOGLOBIN. 7.7 g/dL (12.0-16.0); MEAN CORPUSCULAR HEMOGLOBIN 28.3 pg (28.0-32.0); MEAN CORPUSCULAR VOLUME 85.1 fL (81.0-99.0); RED BLOOD CELL COUNT 2.71 mill/uL (4.2-5.4); RED CELL DISTRIBUTION WIDTH 14.3 % (11.6-14.6)
[2019-05-02 09:05] LABS: PLATELET ESTIMATE NORMAL
[2019-05-02 09:06] LABS: PLATELET 287 x1000/uL (130-400)
[2019-05-02] MEDS: MEGESTROL ACETATE 400 MG/10 ML UDC PO SCH ×3 (09:29→17:59)
[2019-05-02] MEDS: METOPROLOL TARTRATE 25MG TABLET PO SCH ×2 (09:30→21:59)
[2019-05-02] MEDS: AMLODIPINE 5MG TABLET PO SCH ×2 (09:31→21:00)
[2019-05-02] MEDS: ASPIRIN 81MG EC TABLET PO SCH (09:31)
[2019-05-02] MEDS: POTASSIUM CHLORIDE 20MEQ/PACKET PO SCH ×2 (09:31→17:59)
[2019-05-02] MEDS: FUROSEMIDE 40MG TABLET PO SCH (09:31)
[2019-05-02] MEDS: FAMOTIDINE 20MG/2ML VIAL IV SCH (21:59)
== END 2019-05-02 22:40 | disposition home health service (06) | DRG 853 ==
LOC: ER 02:23 → EDBEDREQ 07:26 → EDBEDREQTM 07:26 → EDBEDREQSVC 07:26 → ENRESERV 09:28 → CANRESERV 09:28 → EDBEDREQSVC 10:42 → ENRESERV 20:15 → 5WST 23:25 → MICUSO 04-12 03:15 → 6WST 04-19 10:12 → 5EST 04-25 15:59
PROVIDERS: ADMIT Internal Medicine; ATTEND Internal Medicine
PROC: 4A023N7 Measurement of Cardiac Sampling and Pressure, Left Heart, Percutaneous Approach (ICD-10-PCS; principal; 2019-04-12)
PROC: B2111ZZ Fluoroscopy of Multiple Coronary Arteries using Low Osmolar Contrast (ICD-10-PCS; 2019-04-12)
PROC: B2151ZZ Fluoroscopy of Left Heart using Low Osmolar Contrast (ICD-10-PCS; 2019-04-12)
PROC: 02HV33Z Insertion of Infusion Device into Superior Vena Cava, Percutaneous Approach (ICD-10-PCS; 2019-04-12)
PROC: B548ZZA Ultrasonography of Superior Vena Cava, Guidance (ICD-10-PCS; 2019-04-12)
PROC: 0RG7071 Fusion of 2 to 7 Thoracic Vertebral Joints with Autologous Tissue Substitute, Posterior Approach, Posterior Column, Open Approach (ICD-10-PCS; 2019-04-14)
PROC: 01N80ZZ Release Thoracic Nerve, Open Approach (ICD-10-PCS; 2019-04-14)
PROC: 00NX0ZZ Release Thoracic Spinal Cord, Open Approach (ICD-10-PCS; 2019-04-14)
PROC: 30233N1 Transfusion of Nonautologous Red Blood Cells into Peripheral Vein, Percutaneous Approach (ICD-10-PCS; 2019-04-15)
PROC: 0W9B3ZZ Drainage of Left Pleural Cavity, Percutaneous Approach (ICD-10-PCS; 2019-04-29)
DX: A41.9 Sepsis, unspecified organism (principal); E43 Unspecified severe protein-calorie malnutrition; N17.0 Acute kidney failure with tubular necrosis; J96.01 Acute respiratory failure with hypoxia; G06.1 Intraspinal abscess and granuloma; G82.21 Paraplegia, complete; M46.24 Osteomyelitis of vertebra, thoracic region; D68.9 Coagulation defect, unspecified; G95.20 Unspecified cord compression; N13.30 Unspecified hydronephrosis; N39.0 Urinary tract infection, site not specified; E87.3 Alkalosis; I13.0 Hypertensive heart and chronic kidney disease with heart failure and stage 1 through stage 4 chronic kidney disease, or unspecified chronic kidney disease; M43.16 Spondylolisthesis, lumbar region; E83.42 Hypomagnesemia; E78.5 Hyperlipidemia, unspecified; D64.9 Anemia, unspecified; E87.6 Hypokalemia; I50.9 Heart failure, unspecified; M47.816 Spondylosis without myelopathy or radiculopathy, lumbar region; M48.02 Spinal stenosis, cervical region; M51.36 Other intervertebral disc degeneration, lumbar region; N39.41 Urge incontinence; N18.9 Chronic kidney disease, unspecified; E78.00 Pure hypercholesterolemia, unspecified; M48.061 Spinal stenosis, lumbar region without neurogenic claudication; E66.01 Morbid (severe) obesity due to excess calories; H50.10 Unspecified exotropia; E11.69 Type 2 diabetes mellitus with other specified complication; K59.00 Constipation, unspecified; B96.89 Other specified bacterial agents as the cause of diseases classified elsewhere; K21.9 Gastro-esophageal reflux disease without esophagitis; K82.8 Other specified diseases of gallbladder; E11.22 Type 2 diabetes mellitus with diabetic chronic kidney disease; M48.04 Spinal stenosis, thoracic region; K80.20 Calculus of gallbladder without cholecystitis without obstruction; I25.10 Atherosclerotic heart disease of native coronary artery without angina pectoris; Z74.01 Bed confinement status; Z79.82 Long term (current) use of aspirin; Z68.35 Body mass index [BMI] 35.0-35.9, adult; Z95.5 Presence of coronary angioplasty implant and graft; Z88.6 Allergy status to analgesic agent; I25.2 Old myocardial infarction; Z98.49 Cataract extraction status, unspecified eye
CPT/HCPCS: 32555; 36415; 36600; 71045; 72070; 72128; 72146; 72148; 74018; 74176; 76000; 76770; 76937; 80048; 80053; 80202; 81003; 82040; 82375; 82550; 82553; 82805; 82962; 83605; 83615; 83735; 83880; 84100; 84484; 85014; 85018; 85025; 85651; 86038; 86140; 86160; 86850; 86900; 86920; 87070; 87075; 87106; 88108; 88312; 92610; 93005; 93306; 93458; 93970; 94640; 94660; 94667; 97110; 97162; 97164; 97167; 97168; 97530; 97535; 99291; C1713; C1725; C1769; C1893; C9113; J0360; J0696; J1100; J1170; J1200; J1644; J1940; J2060; J2250; J2405; J2704; J2710; J3010; J3370; J3475; J3480; J3490; J7050; J7060; J7121; P9016; Q9967

== ENCOUNTER 2021-07-06 16:53 | Inpatient (IN) | payer MEDICARE ==
[~2021-07-06] VITALS: Ht 162.6 cm; Wt 113.9 kg
[~2021-07-06 16:53] MED LIST changes: -ASPI-1158 PO; +ASPI-1406 PO; +CLOP-31 PO; -CLOP75TA4 PO
[2021-07-06] MEDS ORDERED: ASPIRIN 81MG TABLET PO ONE (18:45)
[2021-07-06] MEDS ORDERED: AZITHROMYCIN 500MG/250ML 250 ML IV ONE (18:45)
[2021-07-06] MEDS ORDERED: SODIUM CHLORIDE 0.9% 1000ML BAG (SEPSIS BOLUS) IV ONE (18:45)
[2021-07-06] MEDS ORDERED: CEFTRIAXONE 1 G PREMIX 50 ML IV ONE (18:45)
[2021-07-06 19:07] LABS: CHLORIDE 99 mEq/L (98-107)
[2021-07-06 19:09] LABS: INR 1.1; PROTHROMBIN TIME 11.7 sec (9.6-11.0)
[2021-07-06 19:12] LABS: BASOPHILS % 0.2 % (0.0-2.0); EOSINOPHILS % 1.5 % (0.0-5.0); HEMATOCRIT. 28.1 % (36.0-48.0); HEMOGLOBIN. 8.9 g/dL (12.0-16.0); LYMPHOCYTES % 18.1 % (20.0-50.0); MEAN CORPUSCULAR HEMOGLOBIN 27.1 pg (28.0-32.0); MEAN CORPUSCULAR VOLUME 85.1 fL (81.0-99.0); MEAN PLATELET VOLUME 8.3 fl (7.4-10.4); MONOCYTES % 5.9 % (2.0-8.0); NEUTROPHILS % 74.3 % (40.0-76.0); PLATELET 268 x1000/uL (130-400); RED CELL DISTRIBUTION WIDTH 16.1 % (11.6-14.6)
[2021-07-06 19:45] LABS: BG BASE EXCESS 0.3 mmol/L (-2.0-2.0); BG CARBOXYHEMOGLOBIN 0.1 % (0.5-1.5); BG DEOXYHEMOGLOBIN 0.1 % (0.0-5.0); BG FRACTION INSPIRED OXYGEN 100; BG HCO3 ACT 25.4 mmol/L (22.0-26.0); BG METHEMOGLOBIN 0.2 % (0.0-1.5); BG OXYGEN SATURATION 99.9 % (92.0-98.5); BG OXYHEMOGLOBIN 99.6 % (94.0-97.0); BG PCO2 43.2 mmHg (35.0-45.0); BG PH 7.388 (7.350-7.450); BG PO2 487.9 mmHg (75.0-100.0); BG SAMPLE SITE RIGHT RADIAL; BG TOTAL HEMOGLOBIN 11.6 g/dL (12.0-18.0); BG VENT MODE MASK - BIPAP
[2021-07-06] MEDS ORDERED: DIPHENHYDRAMINE 50MG/ML VIAL IV PRN (23:00)
[2021-07-06] MEDS ORDERED: GUAIFENESIN 200MG/10ML SUGAR FREE UDC PO PRN (23:00)
[2021-07-06] MEDS ORDERED: IPRATROPIUM/ALBUTEROL 0.5-3(2.5)MG/3ML NEB HHN PRN (23:00)
[2021-07-06] MEDS ORDERED: CLONIDINE 0.1MG TABLET PO PRN (23:00)
[2021-07-06] MEDS ORDERED: DOCUSATE SODIUM 100MG CAPSULE PO PRN (23:00)
[2021-07-06] MEDS ORDERED: MAGNESIUM/ALUMINUM HYDROXIDE/SIMETHICONE 30ML UDC PO PRN (23:00)
[2021-07-06] MEDS ORDERED: HYDRALAZINE 20MG/ML VIAL IV PRN (23:00)
[2021-07-06] MEDS ORDERED: LORAZEPAM 2MG/ML CPJ IV PRN (23:00)
[2021-07-07] VITALS (9 sets, daily range): BP systolic 84–152; BP diastolic 43–99
[2021-07-07] MEDS ORDERED: CEFTRIAXONE 1 G PREMIX 50 ML IV SCH
[2021-07-07] MEDS: SODIUM CHLORIDE 0.9% INJ 3ML FLUSH IVF SCH ×3 (06:00→21:22)
[2021-07-07] MEDS: ENOXAPARIN 40MG/0.4ML SYR SUBCUT SCH (09:20)
[2021-07-07] MEDS: ACETAMINOPHEN 325MG TABLET PO PRN ×2 (11:01→21:21)
[2021-07-07] MEDS ORDERED: CEFTRIAXONE 1,000 MG in DEXTROSE 5% WATER 50 ML IV SCH (11:15)
[2021-07-07] MEDS: CEFTRIAXONE 1,000 MG in DEXTROSE 5% WATER 50 ML IV SCH (11:41)
[2021-07-07] MEDS: FUROSEMIDE 20MG TABLET PO SCH (11:41)
[2021-07-07 19:12] LABS: BASOPHILS % 0.2 % (0.0-2.0); EOSINOPHILS % 4.1 % (0.0-5.0); HEMATOCRIT. 28.5 % (36.0-48.0); LYMPHOCYTES % 24.4 % (20.0-50.0); MEAN CORPUSCULAR HEMOGLOBIN 27.4 pg (28.0-32.0); MEAN CORPUSCULAR VOLUME 86.8 fL (81.0-99.0); MEAN PLATELET VOLUME 8.1 fl (7.4-10.4); MONOCYTES % 6.3 % (2.0-8.0); PLATELET 247 x1000/uL (130-400); RED BLOOD CELL COUNT 3.28 mill/uL (4.2-5.4)
[2021-07-07 19:26] LABS: CHLORIDE 105 mEq/L (98-107)
[2021-07-07 19:43] LABS: CREATINE KINASE 67 IU/L (26-192); CREATINE KINASE MB FRACTION < 1.0 ng/mL (0.5-3.6)
[2021-07-07] MEDS: ONDANSETRON HCL 4MG/2ML INJ IV PRN (21:21)
[2021-07-07 22:24] LABS: CLARITY URINE CLEAR (CLEAR); COLOR URINE YELLOW (YELLOW); KETONES URINE NEGATIVE (NEGATIVE); LEUKOCYTE ESTERASE URINE 2+ (NEGATIVE); NITRITE URINE NEGATIVE (NEGATIVE); OCCULT BLOOD URINE 1+ (NEGATIVE); PH URINE 5.5 (4.5-8.0); PROTEIN URINE NEGATIVE (NEGATIVE); SPECIFIC GRAVITY URINE 1.012 (1.005-1.030); UROBILINOGEN URINE 0.2 E.U./dL (0.2-1.0)
[2021-07-08] VITALS (13 sets, daily range): BP systolic 113–162; BP diastolic 40–91
[2021-07-08] MEDS: SODIUM CHLORIDE 0.9% INJ 3ML FLUSH IVF SCH ×3 (05:12→22:14)
[2021-07-08 09:12] LABS: BASOPHILS % 0.3 % (0.0-2.0); EOSINOPHILS % 4.1 % (0.0-5.0); HEMOGLOBIN. 8.9 g/dL (12.0-16.0); LYMPHOCYTES % 29.9 % (20.0-50.0); MEAN CORPUSCULAR HEMOGLOBIN 28.2 pg (28.0-32.0); MEAN CORPUSCULAR VOLUME 85.8 fL (81.0-99.0); MONOCYTES % 7.3 % (2.0-8.0); NEUTROPHILS % 58.4 % (40.0-76.0); PLATELET 245 x1000/uL (130-400); RED BLOOD CELL COUNT 3.15 mill/uL (4.2-5.4); RED CELL DISTRIBUTION WIDTH 15.9 % (11.6-14.6)
[2021-07-08] MEDS: ZINC OXIDE 20% OINT 30GM TOP SCH ×2 (09:32→17:00)
[2021-07-08] MEDS: ENOXAPARIN 40MG/0.4ML SYR SUBCUT SCH (09:32)
[2021-07-08] MEDS: FUROSEMIDE 20MG TABLET PO SCH (09:36)
[2021-07-08 10:08] LABS: CHLORIDE 106 mEq/L (98-107)
[2021-07-08] MEDS: CEFTRIAXONE 1,000 MG in DEXTROSE 5% WATER 50 ML IV SCH (12:42)
[2021-07-08] MEDS: ONDANSETRON HCL 4MG/2ML INJ IV PRN (20:08)
[2021-07-08] MEDS: TRAZODONE HCL 50MG TABLET PO PRN (20:08)
[2021-07-09] VITALS (12 sets, daily range): BP systolic 100–152; BP diastolic 39–78
[2021-07-09] MEDS: SODIUM CHLORIDE 0.9% INJ 3ML FLUSH IVF SCH ×3 (05:00→21:47)
[2021-07-09 06:05] LABS: BASOPHILS % 0.3 % (0.0-2.0); EOSINOPHILS % 3.8 % (0.0-5.0); HEMATOCRIT. 28.2 % (36.0-48.0); HEMOGLOBIN. 9.1 g/dL (12.0-16.0); LYMPHOCYTES % 38.3 % (20.0-50.0); MEAN CORPUSCULAR HEMOGLOBIN 27.7 pg (28.0-32.0); MEAN CORPUSCULAR VOLUME 86.2 fL (81.0-99.0); MONOCYTES % 7.8 % (2.0-8.0); NEUTROPHILS % 49.8 % (40.0-76.0); PLATELET 261 x1000/uL (130-400); RED BLOOD CELL COUNT 3.27 mill/uL (4.2-5.4); RED CELL DISTRIBUTION WIDTH 15.7 % (11.6-14.6)
[2021-07-09 07:08] LABS: CHLORIDE 107 mEq/L (98-107)
[2021-07-09] MEDS: FUROSEMIDE 20MG TABLET PO SCH (08:25)
[2021-07-09] MEDS: ZINC OXIDE 20% OINT 30GM TOP SCH ×2 (08:26→18:02)
[2021-07-09] MEDS: ENOXAPARIN 40MG/0.4ML SYR SUBCUT SCH (08:26)
[2021-07-09] MEDS: ACETAMINOPHEN 325MG TABLET PO PRN ×2 (08:27→21:48)
[2021-07-09] MEDS: CEFTRIAXONE 1,000 MG in DEXTROSE 5% WATER 50 ML IV SCH (14:09)
[2021-07-09] MEDS: NYSTATIN POWDER 15GM TOP SCH (18:01)
[2021-07-09] MEDS: TRAZODONE HCL 50MG TABLET PO PRN (21:48)
[2021-07-10] VITALS (11 sets, daily range): BP systolic 94–156; BP diastolic 40–92
[2021-07-10] MEDS: SODIUM CHLORIDE 0.9% INJ 3ML FLUSH IVF SCH ×3 (05:35→22:00)
[2021-07-10 06:58] LABS: BASOPHILS % 0.3 % (0.0-2.0); EOSINOPHILS % 4.5 % (0.0-5.0); HEMATOCRIT. 30.8 % (36.0-48.0); LYMPHOCYTES % 39.7 % (20.0-50.0); MEAN CORPUSCULAR HEMOGLOBIN 27.9 pg (28.0-32.0); MEAN CORPUSCULAR VOLUME 85.7 fL (81.0-99.0); MEAN PLATELET VOLUME 8.2 fl (7.4-10.4); MONOCYTES % 9.6 % (2.0-8.0); NEUTROPHILS % 45.9 % (40.0-76.0); PLATELET 301 x1000/uL (130-400); RED BLOOD CELL COUNT 3.59 mill/uL (4.2-5.4); RED CELL DISTRIBUTION WIDTH 15.4 % (11.6-14.6)
[2021-07-10 07:25] LABS: CHLORIDE 106 mEq/L (98-107)
[2021-07-10] MEDS: FUROSEMIDE 20MG TABLET PO SCH (08:33)
[2021-07-10] MEDS: ENOXAPARIN 40MG/0.4ML SYR SUBCUT SCH (08:33)
[2021-07-10] MEDS: NYSTATIN POWDER 15GM TOP SCH ×3 (08:44→17:37)
[2021-07-10] MEDS: ZINC OXIDE 20% OINT 30GM TOP SCH ×2 (08:44→17:37)
[2021-07-10] MEDS: ACETAMINOPHEN 325MG TABLET PO PRN ×2 (11:14→18:18)
[2021-07-10] MEDS: CEFTRIAXONE 1,000 MG in DEXTROSE 5% WATER 50 ML IV SCH (11:14)
[2021-07-11] VITALS (8 sets, daily range): BP systolic 110–161; BP diastolic 31–70
[2021-07-11] MEDS: ACETAMINOPHEN 325MG TABLET PO PRN ×2 (02:31→09:40)
[2021-07-11] MEDS: SODIUM CHLORIDE 0.9% INJ 3ML FLUSH IVF SCH (05:06)
[2021-07-11 06:49] LABS: BASOPHILS % 0.3 % (0.0-2.0); EOSINOPHILS % 4.7 % (0.0-5.0); HEMOGLOBIN. 9.8 g/dL (12.0-16.0); LYMPHOCYTES % 48.8 % (20.0-50.0); MEAN CORPUSCULAR HEMOGLOBIN 27.6 pg (28.0-32.0); MEAN CORPUSCULAR VOLUME 84.6 fL (81.0-99.0); MEAN PLATELET VOLUME 7.4 fl (7.4-10.4); MONOCYTES % 6.7 % (2.0-8.0); NEUTROPHILS % 39.5 % (40.0-76.0); PLATELET 329 x1000/uL (130-400); RED BLOOD CELL COUNT 3.55 mill/uL (4.2-5.4); RED CELL DISTRIBUTION WIDTH 15.2 % (11.6-14.6)
[2021-07-11 07:15] LABS: CHLORIDE 104 mEq/L (98-107)
[2021-07-11 07:20] LABS: PHOSPHORUS 2.8 mg/dL (2.5-4.9)
[2021-07-11] MEDS: FUROSEMIDE 20MG TABLET PO SCH (09:35)
[2021-07-11] MEDS: ENOXAPARIN 40MG/0.4ML SYR SUBCUT SCH (09:35)
[2021-07-11] MEDS: ZINC OXIDE 20% OINT 30GM TOP SCH (09:37)
[2021-07-11] MEDS: NYSTATIN POWDER 15GM TOP SCH (09:38)
[2021-07-11] MEDS: CEFTRIAXONE 1,000 MG in DEXTROSE 5% WATER 50 ML IV SCH (11:38)
== END 2021-07-11 13:00 | disposition home or self-care (01) | DRG 871 ==
LOC: ER 16:53 → MICUSO 21:01 → EDBEDREQTM 21:04 → EDBEDREQ 21:04 → 5EST 07-07 04:41
PROVIDERS: ADMIT Internal Medicine; ATTEND Internal Medicine
PROC: 5A09357 Assistance with Respiratory Ventilation, Less than 24 Consecutive Hours, Continuous Positive Airway Pressure (ICD-10-PCS; principal; 2021-07-06)
PROC: 5A09357 Assistance with Respiratory Ventilation, Less than 24 Consecutive Hours, Continuous Positive Airway Pressure (ICD-10-PCS; 2021-07-07)
DX: A41.9 Sepsis, unspecified organism (principal); N17.0 Acute kidney failure with tubular necrosis; J18.9 Pneumonia, unspecified organism; J96.01 Acute respiratory failure with hypoxia; D68.9 Coagulation defect, unspecified; E44.0 Moderate protein-calorie malnutrition; G82.20 Paraplegia, unspecified; D64.9 Anemia, unspecified; E11.22 Type 2 diabetes mellitus with diabetic chronic kidney disease; E78.00 Pure hypercholesterolemia, unspecified; E78.5 Hyperlipidemia, unspecified; E86.0 Dehydration; E87.5 Hyperkalemia; I13.10 Hypertensive heart and chronic kidney disease without heart failure, with stage 1 through stage 4 chronic kidney disease, or unspecified chronic kidney disease; I25.10 Atherosclerotic heart disease of native coronary artery without angina pectoris; N18.9 Chronic kidney disease, unspecified; Z95.5 Presence of coronary angioplasty implant and graft; Z99.3 Dependence on wheelchair
CPT/HCPCS: 36415; 36600; 71045; 76770; 78580; 80048; 80053; 81003; 82375; 82550; 82553; 82805; 83605; 83735; 83880; 84100; 84443; 84484; 85025; 85379; 86850; 86900; 87426; 93005; 93970; 94640; 94660; 94664; 97162; 99291; C9803; J0360; J0456; J0696; J1200; J1650; J2060; J2405; J7030; J7060

== ENCOUNTER 2021-09-09 16:36 | Emergency (ER) | payer OTHER, MEDICAID ==
[~2021-09-09] VITALS: Ht 160 cm; Wt 95.0 kg
[2021-09-09] MEDS ORDERED: ONDANSETRON HCL 4MG/2ML INJ IV STA (17:22)
[2021-09-09] MEDS ORDERED: KETOROLAC 15MG/ML VIAL IV ONE (17:30)
[2021-09-09] MEDS ORDERED: SODIUM CHLORIDE 0.9% 1,000 ML IV ONE (17:30)
[2021-09-09 17:48] LABS: BASOPHILS % 0.3 % (0.0-2.0); EOSINOPHILS % 4.3 % (0.0-5.0); HEMATOCRIT. 32.9 % (36.0-48.0); HEMOGLOBIN. 10.6 g/dL (12.0-16.0); LYMPHOCYTES % 53.5 % (20.0-50.0); MEAN CORPUSCULAR HEMOGLOBIN 27.7 pg (28.0-32.0); MEAN PLATELET VOLUME 8.5 fl (7.4-10.4); MONOCYTES % 5.5 % (2.0-8.0); NEUTROPHILS % 36.4 % (40.0-76.0); PLATELET 276 x1000/uL (130-400); RED BLOOD CELL COUNT 3.82 mill/uL (4.2-5.4); RED CELL DISTRIBUTION WIDTH 16.4 % (11.6-14.6)
[2021-09-09 17:59] LABS: CHLORIDE 102 mEq/L (98-107)
[2021-09-09 19:48] VITALS: BP 128/68
[2021-09-09] MEDS ORDERED: ASPIRIN 81MG TABLET PO ONE (20:15)
[2021-09-09] MEDS ORDERED: FUROSEMIDE 40MG/4ML VIAL IV ONE (20:15)
== END 2021-09-10 02:35 | disposition home or self-care (01) ==
LOC: ER 16:36
DX: R10.9 Unspecified abdominal pain (principal); I25.2 Old myocardial infarction; I10 Essential (primary) hypertension; E78.00 Pure hypercholesterolemia, unspecified; E11.9 Type 2 diabetes mellitus without complications
CPT/HCPCS: 36415; 71045; 74176; 80053; 83690; 83880; 84484; 85025; 93005; 96361; 96374; 96375; 99285; J1885; J2405; J7030

== ENCOUNTER 2021-11-11 19:17 | Emergency (ER) | payer MEDICARE, MEDICAID ==
[~2021-11-11] VITALS: Ht 165.1 cm; Wt 105.0 kg
[2021-11-11 21:54] LABS: BASOPHILS % 0.2 % (0.0-2.0); EOSINOPHILS % 1.3 % (0.0-5.0); HEMATOCRIT. 34.8 % (36.0-48.0); HEMOGLOBIN. 11.6 g/dL (12.0-16.0); LYMPHOCYTES % 50.5 % (20.0-50.0); MEAN CORPUSCULAR HEMOGLOBIN 28.5 pg (28.0-32.0); MEAN CORPUSCULAR VOLUME 85.9 fL (81.0-99.0); MEAN PLATELET VOLUME 8.1 fl (7.4-10.4); MONOCYTES % 5.3 % (2.0-8.0); NEUTROPHILS % 42.7 % (40.0-76.0); PLATELET 276 x1000/uL (130-400); RED BLOOD CELL COUNT 4.05 mill/uL (4.2-5.4); RED CELL DISTRIBUTION WIDTH 17.8 % (11.6-14.6)
[2021-11-11 22:08] LABS: CHLORIDE 104 mEq/L (98-107)
[2021-11-11] MEDS ORDERED: CLONIDINE 0.1MG TABLET PO PRN (22:45)
[2021-11-11] MEDS ORDERED: IPRATROPIUM/ALBUTEROL 0.5-3(2.5)MG/3ML NEB HHN PRN (22:45)
[2021-11-11] MEDS ORDERED: GUAIFENESIN 200MG/10ML SUGAR FREE UDC PO PRN (22:45)
[2021-11-11] MEDS ORDERED: ACETAMINOPHEN 325MG TABLET PO PRN ×2 (22:45)
[2021-11-11] MEDS ORDERED: ONDANSETRON HCL 4MG/2ML INJ IV PRN (22:45)
[2021-11-11] MEDS ORDERED: DOCUSATE SODIUM 100MG CAPSULE PO PRN (22:45)
[2021-11-11] MEDS ORDERED: ASPIRIN 81MG TABLET PO ONE (23:15)
[2021-11-12 01:44] LABS: CLARITY URINE CLEAR (CLEAR); COLOR URINE YELLOW (YELLOW); KETONES URINE NEGATIVE (NEGATIVE); LEUKOCYTE ESTERASE URINE NEGATIVE (NEGATIVE); NITRITE URINE NEGATIVE (NEGATIVE); OCCULT BLOOD URINE NEGATIVE (NEGATIVE); PROTEIN URINE NEGATIVE (NEGATIVE); SPECIFIC GRAVITY URINE 1.008 (1.005-1.030); UROBILINOGEN URINE 0.2 E.U./dL (0.2-1.0)
[2021-11-12 04:54] LABS: BASOPHILS % 0.4 % (0.0-2.0); EOSINOPHILS % 1.6 % (0.0-5.0); HEMATOCRIT. 32.7 % (36.0-48.0); HEMOGLOBIN. 10.7 g/dL (12.0-16.0); MEAN CORPUSCULAR HEMOGLOBIN 27.8 pg (28.0-32.0); MEAN PLATELET VOLUME 7.8 fl (7.4-10.4); MONOCYTES % 5.5 % (2.0-8.0); NEUTROPHILS % 38.5 % (40.0-76.0); PLATELET 267 x1000/uL (130-400); RED BLOOD CELL COUNT 3.85 mill/uL (4.2-5.4); RED CELL DISTRIBUTION WIDTH 17.6 % (11.6-14.6)
[2021-11-12 05:03] LABS: CHLORIDE 104 mEq/L (98-107)
[2021-11-12 05:17] LABS: CREATINE KINASE 42 IU/L (26-192); HDL CHOLESTEROL 53 mg/dL (40-59); LDL CHOLESTEROL 67 mg/dL (5-100)
[2021-11-12] MEDS ORDERED: NALOXONE HCL 0.4MG/ML VIAL IV PRN (05:30)
[2021-11-12] MEDS: HYDROCODONE/ACETAMINOPHEN 5/325MG TABLET PO PRN ×2 (05:42→10:21)
[2021-11-12] MEDS ORDERED: ASPIRIN 81MG EC TABLET PO SCH (09:00)
[2021-11-12] MEDS ORDERED: MAGNESIUM/ALUMINUM HYDROXIDE/SIMETHICONE 30ML UDC PO PRN (09:00)
[2021-11-12] MEDS ORDERED: ENOXAPARIN 30MG/0.3ML SYR SUBCUT SCH (09:00)
[2021-11-12 10:21] VITALS: BP 109/89
== END 2021-11-12 10:21 | disposition short-term general hospital (02) ==
LOC: ER 19:17 → MERGE 19:17 → ER 11-12 10:21
DX: R10.9 Unspecified abdominal pain (principal); R07.89 Other chest pain; E11.9 Type 2 diabetes mellitus without complications; I10 Essential (primary) hypertension; I25.2 Old myocardial infarction; Z20.822 Contact with and (suspected) exposure to COVID-19
CPT/HCPCS: 36415; 71045; 74176; 80053; 80061; 81003; 82550; 83605; 83690; 83880; 84443; 84484; 85025; 87426; 93005; 99281; 99285; C9803

== ENCOUNTER 2021-11-11 23:25 | Emergency (ER) | payer OTHER, MEDICARE ==
[2021-11-12] MEDS ORDERED: ASPIRIN 81MG TABLET ONE (00:16)
== END 2021-11-12 11:36 | disposition left against medical advice (07) ==
LOC: ER 23:25
DX: Z53.21 Procedure and treatment not carried out due to patient leaving prior to being seen by health care provider (principal)
CPT/HCPCS: 99281